=== PATIENT | female | born 1945 | race Caucasian/White ===

== ENCOUNTER → 2016-10-14 | Outpatient (CLI) | payer MEDICARE ==
--- NOTE | 2016-10-14 10:38 | CT ---
EXAMINATION TYPE: CT chest w con DATE OF EXAM: 10/14/2016 10:22 AM COMPARISON: NONE HISTORY: Patient complains of chronic productive cough. CT DLP: 548 mGycm, Automated exposure control for dose reduction was used. CONTRAST: Performed injected with 100 mL of Omnipaque 300. TECHNIQUE: Axial images were obtained at 5 mm thick sections. Reconstructed images are reviewed on t computer in the coronal plane. FINDINGS: Portion of the thyroid visualized is normal. No suspicious lung nodules or focal infiltrates are present. There is some mild pneumonitis change wi thin the lingula. Some compressive atelectasis may be within the dependent portions of the lung bases bilaterally. Small area of pneumonitis is in the periphery of the left lung base. Series 4 image 36. There is a 1.2 cm lymph node in the pretracheal space. The ascending aorta diameter at the level of the main pulmonary artery is 3.3 cm. The main pulmonary artery diameter at the bifurcation is 2.[address] sections are obtained through the upper abdomen. There is mild fatty infiltration within t he visualized portions of the liver. Cortical renal cyst is on the posterior superior left kidney wit h a 1.0 cm transverse dimension. IMPRESSIONS: 1. Mild areas of pneumonitis bilateral lung bases which are nonspecific.
== END | disposition home or self-care (01) ==
LOC: RADCTMAIN 09:36
PROVIDERS: ATTEND Internal Medicine
DX: J18.9 Pneumonia, unspecified organism (principal)
CPT/HCPCS: 71260; Q9967

== ENCOUNTER → 2016-11-06 | Outpatient (CLI) | payer MEDICARE ==
--- NOTE | 2016-11-06 14:19 | MM ---
Reason for exam: screening (asymptomatic). Last mammogram was performed 1 year and 10 months ago. History: Patient is postmenopausal. Took estrogen for 17 years. Took progesterone for 17 years. Physical Findings: A clinical breast exam by your physician is recommended on an annual basis and results should be correlated with mammographic findings. MG Screening Mammo w CAD Bilateral CC and MLO view(s) were taken. Prior study comparison: December 31, 2014, right breast MG work up mamm w CAD RT. December 24, 2014, bilateral MG screening mammo w CAD. There are scattered fibroglandular densities. There is no discrete abnormality. ASSESSMENT: Negative, BI-RAD 1 RECOMMENDATION: Routine screening mammogram of both breasts in 1 year.
== END | disposition home or self-care (01) ==
LOC: RADMAMWWP 11-05 07:57
PROVIDERS: ATTEND Internal Medicine
DX: Z12.31 Encounter for screening mammogram for malignant neoplasm of breast (principal)

== ENCOUNTER 2017-10-13 15:24 | Observation (INO) | payer MEDICARE ==
[2017-10-13 16:10] LABS: Basophils % (A) 1 %; Eosinophils # (A) 0.2 k/uL (0-0.7); Eosinophils % (A) 3 %; HCT 39.6 % (34.0-46.0); HGB 13.5 gm/dL (11.4-16.0); Lymphocytes # (A) 2.5 k/uL (1.0-4.8); Lymphocytes % (A) 38 %; MCH 29.9 pg (25.0-35.0); MCHC 34.1 g/dL (31.0-37.0); MCV 87.7 fL (80.0-100.0); Mean Platelet Volume 7.3; Monocytes # (A) 0.4 k/uL (0-1.0); Monocytes % (A) 6 %; Neutrophils # (A) 3.2 k/uL (1.3-7.7); Neutrophils % (A) 50 %; Platelet Count 234 k/uL (150-450); RBC 4.52 m/uL (3.80-5.40); RDW 12.8 % (11.5-15.5); WBC 6.5 k/uL (3.8-10.6)
--- NOTE | 2017-10-13 16:11 | ED ---
Chest Pain HPI - General Chief Complaint: Chest Pain Stated Complaint: chest pain Time Seen by Provider: 10/13/17 15:36 Source: patient Mode of arrival: wheelchair Limitations: no limitations - History of Present Illness Initial Comments: Patient complains of chest pain. Pain is in the middle of the chest. The pain does not radiate anywhere. Nothing makes it better or worse. Patient took aspirin just prior to arrival. She has no nausea, vomiting, diaphoresis. She has no palpitations. She has no pain or swelling in the arms or legs. She has no neck pain or stiffness. She has no change in vision or hearing. She has no headache. - Related Data Home Medications Medication Instructions Recorded Confirmed Acetaminophen [Tylenol] 1,000 mg PO Q4-6H PRN 10/13/17 10/13/17 Aspirin [Children's Aspirin] 81 mg PO DAILY 10/13/17 10/13/17 Atorvastatin [Lipitor] 40 mg PO DAILY 10/13/17 10/13/17 Calcium Carbonate/Vitamin D3 1 tab PO DAILY 10/13/17 10/13/17 [Calcium 600-Vit D3 400 Tablet] Cyanocobalamin [Vitamin B-12] 500 mcg PO DAILY 10/13/17 10/13/17 Fenofibric Acid (Choline) 135 mg PO DAILY 10/13/17 10/13/17 [Fenofibric Acid] Folic Acid 1.6 mg PO DAILY 10/13/17 10/13/17 Levothyroxine Sodium [Synthroid] 25 mcg PO DAILY 10/13/17 10/13/17 Multivit-Min/Iron/Folic/Lutein 1 tab PO DAILY 10/13/17 10/13/17 [Centrum Silver Women Tablet] Valsartan/Hydrochlorothiazide 1 tab PO DAILY 10/13/17 10/13/17 [Valsartan-Hctz 160-12.5 mg Tab] Allergies Allergy/AdvReac Type Severity Reaction Status Date / Time No Known Allergies Allergy Verified 10/13/17 15:50 Review of Systems ROS Statement: Those systems with pertinent positive or pertinent negative responses have been documented in the HPI. ROS Other: All systems not noted in ROS Statement are negative. EKG Findings - EKG Comments: EKG Findings:: Twelve-lead EKG shows ventricular rate 64 bpm, normal DE interval and QRS complexes, no ST elevation or depression, interpreted by me as normal sinus rhythm. Past Medical History Past Medical History: Hyperlipidemia, Hypertension, Thyroid Disorder History of Any Multi-Drug Resistant Organisms: None Reported Past Surgical History: Appendectomy, Section, Cholecystectomy Past Psychological History: No Psychological Hx Reported Smoking Status: Never smoker Past Alcohol Use History: None Reported Past Drug Use History: None Reported General Exam Limitations: no limitations General appearance: alert, in no apparent distress Head exam: Present: atraumatic, normocephalic, normal inspection Eye exam: Present: normal appearance, PERRL, EOMI. Absent: scleral icterus, conjunctival injection, periorbital swelling ENT exam: Present: normal exam, mucous membranes moist Neck exam: Present: normal inspection. Absent: tenderness, meningismus, lymphadenopathy Respiratory exam: Present: normal lung sounds bilaterally. Absent: respiratory distress, wheezes, rales, rhonchi, stridor Cardiovascular Exam: Present: regular rate, normal rhythm, normal heart sounds. Absent: systolic murmur, diastolic murmur, rubs, gallop, clicks GI/Abdominal exam: Present: soft, normal bowel sounds. Absent: distended, tenderness, guarding, rebound, rigid Extremities exam: Present: normal inspection, full ROM, normal capillary refill. Absent: tenderness, pedal edema, joint swelling, calf tenderness Back exam: Present: normal inspection Neurological exam: Present: alert, oriented X3, CN II-XII intact Psychiatric exam: Present: normal affect, normal mood Skin exam: Present: warm, dry, intact, normal color. Absent: rash Course Vital Signs 10/13/17 10/13/17 15:29 16:03 Temperature 97.0 F L Pulse Rate 74 54 L Respiratory 20 16 Rate Blood Pressure 109/91 140/62 O2 Sat by Pulse 97 98 Oximetry Chest Pain [facility] Patient complains of chest pain. Laboratory workup so far is negative. She will be admitted for observation. Disposition Clinical Impression: Chest pain Disposition: ADMITTED IP TO THIS HOSP Condition: Fair Referrals: Fransisca Perera MD [Primary Care Provider] - 1-2 days Time of Disposition: 16:56
--- NOTE | 2017-10-13 16:11 | XR ---
EXAMINATION TYPE: XR chest 2V DATE OF EXAM: 10/13/2017 COMPARISON: Chest CT October 14, 2016 HISTORY: Chest pain. TECHNIQUE: Frontal and lateral views of the chest are obtained. FINDINGS: There is background chronic emphysematous change with left basilar fibrosis and/or scarring . There is no new suspicious focal air space opacity, pleural effusion, or pneumothorax seen. The ca rdiac silhouette size is within normal limits. The osseous structures are intact. Cholecystectomy c lips are noted. IMPRESSION: Chronic changes without acute pulmonary process.
[2017-10-13 16:22] LABS: Partial Thromboplastin Time 24.3 sec (22.0-30.0)
[2017-10-13 16:24] LABS: ALT 55 U/L (9-52); AST 55 U/L (14-36); Albumin 4.4 g/dL (3.5-5.0); Alkaline Phosphatase 71 U/L (38-126); Anion Gap 13 mmol/L; Blood Urea Nitrogen 15 mg/dL (7-17); Calcium 10.1 mg/dL (8.4-10.2); Carbon Dioxide 26 mmol/L (22-30); Chloride 100 mmol/L (98-107); Glucose 165 mg/dL (74-99); Lipase 190 U/L (23-300); Magnesium 1.4 mg/dL (1.6-2.3); Sodium 139 mmol/L (137-145); Total Bilirubin 0.6 mg/dL (0.2-1.3); Total Protein 7.1 g/dL (6.3-8.2)
[2017-10-13 16:31] LABS: Potassium 4.1 mmol/L (3.5-5.1)
[2017-10-13 16:32] LABS: INR 1.1 (<1.2); Prothrombin Time 10.8 sec (9.0-12.0)
[2017-10-13] MEDS ORDERED: NALOXONE 0.4 MG/ML 1 ML VIAL IV PRN (16:56)
[2017-10-13] MEDS ORDERED: ONDANSETRON 4 MG/2 ML VIAL IVP PRN (16:56)
[2017-10-13] MEDS ORDERED: HEPARIN SODIUM,PORCINE 5,000 UNIT/ML 1 ML VIAL SQ STA (17:05)
[2017-10-13] MEDS ORDERED: NITROGLYCERIN OINT 1 INCH/GM PACKET TOPICAL STA (17:05)
[2017-10-13 18:22] VITALS: RESP 18
[2017-10-13] MEDS: FAMOTIDINE 20 MG TAB PO SCH (20:01)
[2017-10-14] MEDS ORDERED: LEVOTHYROXINE 25 MCG TAB PO SCH (06:30)
[2017-10-14] MEDS: FAMOTIDINE 20 MG TAB PO SCH (08:55)
[2017-10-14] MEDS ORDERED: ACETAMINOPHEN TAB 500 MG TAB PO PRN (08:56)
[2017-10-14] MEDS ORDERED: ASPIRIN 81 MG PO SCH (09:00)
[2017-10-14] MEDS ORDERED: VALSARTAN 160 MG TAB PO SCH (09:00)
[2017-10-14] MEDS ORDERED: ATORVASTATIN 40 MG TAB PO SCH (09:00)
[2017-10-14] MEDS ORDERED: HYDROCHLOROTHIAZIDE 12.5 MG CAP PO SCH (09:00)
[2017-10-14] MEDS ORDERED: Magnesium Replacement Protocol 1 EACH MISC MISCELLANE PRN (09:06)
--- NOTE | 2017-10-14 09:08 | P.CRDCN ---
History of Present Illness Consult date: 10/14/17 History of present illness: Mrs. Armando is a pleasant 72-year-old female with past medical history significant for dyslipidemia, hypertension and hypothyroidism. She denies history of coronary artery disease and has never seen a director of sales and marketing for any reason. We have been asked to see her in consultation for complaints of chest pain. 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 She was assisting with this without an issue. After arriving home for the evening she began to feel a discomfort in her back and chest. She states it was worse with movement and felt sore. She felt as though she couldn't take a deep breath without feeling pain in her back. At the time of my exam she is chest pain free. She denies associated symptoms such as shortness of breath, dizziness , palpitations, diaphoresis, nausea or vomiting. EKG on arrival reveals sinus mechanism with no acute ST or T-wave abnormalities. Chest xray is negative for an acute cardiopulmonary process. Laboratory data reviewed, hemoglobin 13.5, platelets 234, potassium 4.1, magnesium 1.4, creatinine 0.87, cardiac enzymes negative 3, chloride enzymes mildly elevated. Current cardiac medications include atorvastatin 40 mg daily, fenofibrate 135 mg daily, valsartan/HCTZ 160/12.5 daily, aspirin 81 mg daily. Review of Systems CONSTITUTIONAL: Denies fever. Denies chills. EYES: Denies blurred vision. Denies vision changes. Denies eye pain. EARS, NOSE, MOUTH & THROAT: Denies headache. Denies sore throat. Denies ear pain. CARDIOVASCULAR: Denies chest pain. Denies shortness of breath. Denies orthopnea. Denies PND. Denies palpitations. RESPIRATORY: Denies cough. GASTROINTESTINAL: Denies abdominal pain. Denies diarrhea. Denies constipation. Denies nausea. Denies vomiting. MUSCULOSKELETAL: Denies myalgias. INTEGUMENTARY: Denies pruitis. Denies rash. NEUROLOGIC: Denies numbness. Denies tingling. Denies weakness. PSYCHIATRIC: Denies anxiety. Denies depression. ENDOCRINE: Denies fatigue. Denies weight change. Denies polydipsia. Denies polyurina. GENITOURINARY: Denies burning, hematuria or urgency with micturation. HEMATOLOGIC: Denies history of anemia. Denies bleeding. Past Medical History Past Medical History: Hyperlipidemia, Hypertension, Osteoarthritis (OA), Thyroid Disorder History of Any Multi-Drug Resistant Organisms: None Reported Past Surgical History: Appendectomy, Section, Cholecystectomy Additional Past Surgical History / Comment(s): C-SECTIONS X3, COLONOSCPY, CATARACTS -PRATIK LENS IMPLANTS Past Anesthesia/Blood Transfusion Reactions: No Reported Reaction Smoking Status: Never smoker - Past Family History Mother Family Medical History: CVA/TIA, Hypertension Father Family Medical History: Cancer, COPD Additional Family Medical History / Comment(s): EMPHYSEMA, LUNG CANCER, SMOKER Medications and Allergies Home Medications Medication Instructions Recorded Confirmed Type Acetaminophen [Tylenol] 1,000 mg PO Q4-6H PRN 10/13/17 10/13/17 History Aspirin [Children's Aspirin] 81 mg PO DAILY 10/13/17 10/13/17 History Atorvastatin [Lipitor] 40 mg PO DAILY 10/13/17 10/13/17 History Calcium Carbonate/Vitamin D3 1 tab PO DAILY 10/13/17 10/13/17 History [Calcium 600-Vit D3 400 Tablet] Cyanocobalamin [Vitamin B-12] 500 mcg PO DAILY 10/13/17 10/13/17 History Fenofibric Acid (Choline) 135 mg PO DAILY 10/13/17 10/13/17 History [Fenofibric Acid] Folic Acid 1.6 mg PO DAILY 10/13/17 10/13/17 History Levothyroxine Sodium [Synthroid] 25 mcg PO DAILY 10/13/17 10/13/17 History Multivit-Min/Iron/Folic/Lutein 1 tab PO DAILY 10/13/17 10/13/17 History [Centrum Silver Women Tablet] Valsartan/Hydrochlorothiazide 1 tab PO DAILY 10/13/17 10/13/17 History [Valsartan-Hctz 160-12.5 mg Tab] Allergies Allergy/AdvReac Type Severity Reaction Status Date / Time No Known Allergies Allergy Verified 10/13/17 15:50 Physical Exam Vitals: Vital Signs Temp Pulse Pulse Resp BP BP Pulse Ox 10/14/17 08:00 97.5 F L 61 18 128/66 95 10/14/17 04:00 98.2 F 55 L 18 131/54 97 10/14/17 00:00 18 10/13/17 22:36 84 18 130/80 96 10/13/17 20:00 18 10/13/17 19:24 97.9 F 61 18 139/74 94 L 10/13/17 18:25 63 18 10/13/17 18:15 97.7 F 63 18 126/63 98 10/13/17 17:25 98.2 F 57 L 16 146/65 97 10/13/17 16:03 54 L 16 140/62 98 10/13/17 15:29 97.0 F L 74 20 109/91 97 Intake and Output 10/13/17 10/14/17 10/14/17 22:59 06:59 14:59 Intake Total 240 Balance 240 Intake: Oral 240 Other: Voiding Method Toilet Toilet # Voids 1 Weight 81 kg Blood pressure 128/66 heart rate 61 afebrile GENERAL: This is a 72-year-old female in no apparent distress at the time of my examination. HEENT: Head is atraumatic, normocephalic. Pupils are equal, round. Sclerae anicteric. Conjunctivae are clear. Mucous membranes of the mouth are moist. Neck is supple. There is no jugular venous distention. No carotid bruit is heard. LUNGS: Clear to auscultation no wheezes, rales or rhonchi. No chest wall tenderness is noted on palpation or with deep breathing. HEART: Regular rate and rhythm without murmurs, rubs or gallops. S1 and S2 heard. ABDOMEN: Soft, nontender. Bowel sounds are heard. No organomegaly noted. EXTREMITIES: 2+ peripheral pulses with no evidence of peripheral edema and no calf tenderness noted. NEUROLOGIC: Patient is awake, alert and oriented x3. Results 10/13/17 15:58 10/13/17 15:58 Cardiac Enzymes 10/13/17 10/13/17 10/13/17 Range/Units 15:58 15:58 22:35 AST 55 H (14-36) U/L Troponin I <0.012 <0.012 (0.000-0.034) ng/mL 10/14/17 Range/Units 03:29 AST (14-36) U/L Troponin I <0.012 (0.000-0.034) ng/mL Coagulation 10/13/17 Range/Units 15:58 PT 10.8 (9.0-12.0) sec APTT 24.3 (22.0-30.0) sec CBC 10/13/17 Range/Units 15:58 WBC 6.5 (3.8-10.6) k/uL RBC 4.52 (3.80-5.40) m/uL Hgb 13.5 (11.4-16.0) gm/dL Hct 39.6 (34.0-46.0) % Plt Count 234 (150-450) k/uL Comprehensive Metabolic Panel 10/13/17 Range/Units 15:58 Sodium 139 (137-145) mmol/L Potassium 4.1 (3.5-5.1) mmol/L Chloride 100 (98-107) mmol/L Carbon Dioxide 26 (22-30) mmol/L BUN 15 (7-17) mg/dL Creatinine 0.87 (0.52-1.04) mg/dL Glucose 165 H (74-99) mg/dL Calcium 10.1 (8.4-10.2) mg/dL AST 55 H (14-36) U/L ALT 55 H (9-52) U/L Alkaline Phosphatase 71 (38-126) U/L Total Protein 7.1 (6.3-8.2) g/dL Albumin 4.4 (3.5-5.0) g/dL Current Medications Generic Name Dose Route Start Last Admin Trade Name Freq PRN Reason Stop Dose Admin Aspirin 81 mg 10/14/17 09:00 Aspirin PO DAILY [facility] Atorvastatin Calcium 40 mg 10/14/17 09:00 Lipitor PO DAILY [facility] Famotidine 20 mg 10/13/17 21:00 10/13/17 20:01 Pepcid PO 20 mg BID SCOOBY Administration Hydrochlorothiazide 12.5 mg 10/14/17 09:00 Hydrodiuril PO DAILY [facility] Levothyroxine Sodium 25 mcg 10/14/17 06:30 10/14/17 06:17 Synthroid PO 25 mcg 0630 SCOOBY Administration Naloxone HCl 0.2 mg 10/13/17 16:56 Narcan IV Q2M PRN Opioid Reversal Ondansetron HCl 4 mg 10/13/17 16:56 Zofran IVP Q8HR PRN Nausea And Vomiting Valsartan 160 mg 10/14/17 09:00 Diovan PO DAILY SCOOBY Intake and Output 10/13/17 10/14/17 10/14/17 22:59 06:59 14:59 Intake Total 240 Balance 240 Intake: Oral 240 Other: Voiding Method Toilet Toilet # Voids 1 Weight 81 kg 10/13/17 15:58 10/13/17 15:58 Assessment and Plan Assessment: ASSESSMENT 1. Pleuritic chest pain 2. Essential hypertension 3. Dyslipidemia 4. Hypomagnesemia PLAN Obtain 2-D echocardiogram and Doppler study to assess cardiac structure and function. Replace magnesium per protocol. Mrs. Armando's symptoms are pleuritic in nature. This appears to be a muscular skeletal injury secondary to increased exertion and heavy lifting. EKG and cardiac enzymes rule out an acute coronary event. She is stable from a cardiac perspective. She has been advised to follow-up in the office with Dr. Hyde 4- 6 weeks for further outpatient testing. Thank you kindly for this consultation. The above impression and plan of care have been discussed and directed by the signing physician. Dian Mosquera, nurse practitioner, acting as scribe for signing physician.
[2017-10-14] MEDS ORDERED: MAGNESIUM SULFATE-D5W PMX 1 GM in DEXTROSE/WATER 1 100ML.BAG IVPB SCH (10:00)
--- NOTE | 2017-10-14 11:13 | ECHOF ---
Referral Reason:chest pain MEASUREMENTS -------- HEIGHT: 157.5 cm WEIGHT: 80.7 kg BP: 131/54 RVIDd: 2.4 cm (< 3.3) IVSd: 1.0 cm (0.6 - 1.1) LVIDd: 4.4 cm (3.9 - 5.3) LVPWd: 1.2 cm (0.6 - 1.1) IVSs: 1.7 cm LVIDs: 2.6 cm LVPWs: 1.3 cm LAESV Index (A-L): 28.98 ml/m Ao Diam: 2.8 cm (2.0 - 3.7) AV Cusp: 1.5 cm (1.5 - 2.6) LA Diam: 3.1 cm (2.7 - 3.8) EPSS: 0.8 cm MV E Sharan: 1.14 m/s MV DecT: 250 ms MV A Sharan: 1.34 m/s MV E/A Ratio: 0.85 AR PHT: 562 ms RAP: 5.00 mmHg RVSP: 49.65 mmHg MV EF SLOPE: 55.80 mm/s (70 - 150) MV EXCURSION: 1.49 cm (> 18.000) FINDINGS -------- Sinus rhythm. This was a technically adequate study. The left ventricular size is normal. There is borderline concentric left ventricular hypertrophy. Overall left ventricular systolic function is normal with, an EF between 55 - 60 %. The right ventricle is normal in size and function. LA is midly dilated 29-33ml/m2. RA appears enlarged. There is mild aortic valve sclerosis. There is [id number] aortic regurgitation. The aortic pressure half-time by doppler is 562ms. There is no evidence of aortic stenosis. The mitral valve leaflets are mildly thickened. There is trace to mild mitral regurgitation. Trace tricuspid regurgitation present. There is mild to moderate pulmonary hypertension. The righ t ventricular systolic pressure, as measured by Doppler, is 49.65mmHg. The pulmonic valve is normal. The aortic root size is normal. Normal inferior vena cava with normal inspiratory collapse consistent with estimated right atrial pre ssure of 5 mmHg. The pericardium is normal. There is no pericardial effusion. CONCLUSIONS -------- 1. Sinus rhythm. 2. This was a technically adequate study. 3. The left ventricular size is normal. 4. There is borderline concentric left ventricular hypertrophy. 5. Overall left ventricular systolic function is normal with, an EF between 55 - 60 %. 6. LA is midly dilated 29-33ml/m2. 7. RA appears enlarged. 8. There is mild aortic valve sclerosis. 9. There is [id number] aortic regurgitation. 10. The aortic pressure half-time by doppler is 562ms. 11. The mitral valve leaflets are mildly thickened. 12. There is trace to mild mitral regurgitation. 13. Trace tricuspid regurgitation present. 14. There is mild to moderate pulmonary hypertension. 15. The right ventricular systolic pressure, as measured by Doppler, is 49.65mmHg. 16. The aortic root size is normal. 17. There is no pericardial effusion. CASTING SORTER: Wisam Barnes RDCS
[2017-10-14 12:04] VITALS: BP 137/71; PULSE 70; TEMP 98.2
--- NOTE | 2017-10-14 13:39 | P.HPIM ---
History of Present Illness H&P Date: 10/14/17 Chief Complaint: Chest pain HISTORY AND PHYSICAL AND DISCHARGE SUMMARY: This is a 72-year-old female patient of Dr. Theodore with a past medical history of hyperlipidemia, hypertension, hypothyroidism. She states she developed heaviness in her chest that then became pain. She states she's never had this discomfort before. She states that after she was here at the hospital for a few hours she realized that it was related to picking up heavy stuff that she done the day before. She denies having any cough, edema. She denies any cardiac history or workup in the past. Patient was placed in the observation unit and seen in consultation by cardiology and ruled out acute coronary syndrome and cleared her for discharge with planned follow-up with Dr. Roy in 4-6 weeks. Troponins have been negative on 3 draws. Patient will be discharged home today in stable condition. Review of Systems All systems: negative Constitutional: Denies chills, Denies fever Eyes: denies blurred vision, denies pain Ears, nose, mouth and throat: Denies headache, Denies sore throat Cardiovascular: Reports chest pain, Denies shortness of breath Respiratory: Denies cough Gastrointestinal: Denies abdominal pain, Denies diarrhea, Denies nausea, Denies vomiting Genitourinary: Denies dysuria, Denies hematuria Musculoskeletal: Denies myalgias Integumentary: Denies pruritus, Denies rash Neurological: Denies numbness, Denies weakness Psychiatric: Denies anxiety, Denies depression Endocrine: Denies fatigue, Denies weight change Past Medical History Past Medical History: Hyperlipidemia, Hypertension, Osteoarthritis (OA), Thyroid Disorder History of Any Multi-Drug Resistant Organisms: None Reported Past Surgical History: Appendectomy, Section, Cholecystectomy Additional Past Surgical History / Comment(s): C-SECTIONS X3, COLONOSCPY, CATARACTS -PRATIK LENS IMPLANTS Past Anesthesia/Blood Transfusion Reactions: No Reported Reaction Smoking Status: Never smoker Additional Past Alcohol Use History / Comment(s): Patient is a lifelong nonsmoker. She denies any medical marijuana, marijuana, street drug or alcohol use. She lives at home with her . - Past Family History Mother Family Medical History: CVA/TIA, Hypertension Additional Family Medical History / Comment(s): Mother at age 90 from old age. Father Family Medical History: Cancer, COPD Additional Family Medical History / Comment(s): Father at age 80 with history of EMPHYSEMA, LUNG CANCER, SMOKER Brother(s) Additional Family Medical History / Comment(s): Patient has 2 brothers; one has peaks maker, one has no major medical problems. Sister(s) Additional Family Medical History / Comment(s): Patient does not have any sisters. Patient has 2 daughters and 1 son with no major medical problems. Medications and Allergies Home Medications Medication Instructions Recorded Confirmed Type Acetaminophen [Tylenol] 1,000 mg PO Q4-6H PRN 10/13/17 10/13/17 History Aspirin [Children's Aspirin] 81 mg PO DAILY 10/13/17 10/13/17 History Atorvastatin [Lipitor] 40 mg PO DAILY 10/13/17 10/13/17 History Calcium Carbonate/Vitamin D3 1 tab PO DAILY 10/13/17 10/13/17 History [Calcium 600-Vit D3 400 Tablet] Cyanocobalamin [Vitamin B-12] 500 mcg PO DAILY 10/13/17 10/13/17 History Fenofibric Acid (Choline) 135 mg PO DAILY 10/13/17 10/13/17 History [Fenofibric Acid] Folic Acid 1.6 mg PO DAILY 10/13/17 10/13/17 History Levothyroxine Sodium [Synthroid] 25 mcg PO DAILY 10/13/17 10/13/17 History Multivit-Min/Iron/Folic/Lutein 1 tab PO DAILY 10/13/17 10/13/17 History [Centrum Silver Women Tablet] Valsartan/Hydrochlorothiazide 1 tab PO DAILY 10/13/17 10/13/17 History [Valsartan-Hctz 160-12.5 mg Tab] Magnesium Oxide [Mag-Ox] 400 mg PO BID #60 tablet 10/14/17 Rx Allergies Allergy/AdvReac Type Severity Reaction Status Date / Time No Known Allergies Allergy Verified 10/13/17 15:50 Physical Exam Vitals: Vital Signs Temp Pulse Pulse Resp BP BP Pulse Ox 10/14/17 08:00 97.5 F L 61 18 128/66 95 10/14/17 04:00 98.2 F 55 L 18 131/54 97 10/14/17 00:00 18 10/13/17 22:36 84 18 130/80 96 10/13/17 20:00 18 10/13/17 19:24 97.9 F 61 18 139/74 94 L 10/13/17 18:25 63 18 10/13/17 18:15 97.7 F 63 18 126/63 98 10/13/17 17:25 98.2 F 57 L 16 146/65 97 10/13/17 16:03 54 L 16 140/62 98 10/13/17 15:29 97.0 F L 74 20 109/91 97 Intake and Output 10/13/17 10/14/17 10/14/17 22:59 06:59 14:59 Intake Total 240 Balance 240 Intake: Oral 240 Other: Voiding Method Toilet Toilet # Voids 1 Weight 81 kg Gen: This is a 72-year-old female patient. She is sitting up in bed appears to be in no acute distress. HEENT: Head is atraumatic, normocephalic. Pupils equal, round. Sclerae is anicteric. NECK: Supple. No JVD. No lymphadenopathy. No thyromegaly. LUNGS: Clear to auscultation. No wheezes or rhonchi. No intercostal retractions. HEART: Regular rate and rhythm. No murmur. ABDOMEN: Soft. Bowel sounds are present. No masses. No tenderness. EXTREMITIES: No pedal edema. No calf tenderness. NEUROLOGICAL: Patient is awake, alert and oriented x3. Cranial nerves 2 through 12 are grossly intact. Results CBC & Chem 7: 10/13/17 15:58 10/13/17 15:58 Labs: Abnormal Lab Results - Last 24 Hours (Table) 10/13/17 Range/Units 15:58 Glucose 165 H (74-99) mg/dL Magnesium 1.4 L (1.6-2.3) mg/dL AST 55 H (14-36) U/L ALT 55 H (9-52) U/L Thrombosis Risk Factor Assmnt - Choose All That Apply Any of the Below Risk Factors Present?: Yes Each Factor Represents 1 point: Obesity (BMI >25) Other Risk Factors: Yes Each Risk Factor Represents 2 Points: Age 61-74 years Other congenital or acquired thrombophilia - If yes, enter type in comment: No Thrombosis Risk Factor Assessment Total Risk Factor Score: 3 Thrombosis Risk Factor Assessment Level: Moderate Risk Assessment and Plan Plan: 1. Musculoskeletal chest pain. 2. Hypomagnesemia status post replacement. Patient started on magnesium for home. 3. Hypertension. 4. Hyperlipidemia. 5. Generalized osteoarthritis. 6. Hypothyroidism. Patient is on the observation unit. Discharge plan: Return home Discharge Medication List Acetaminophen [Tylenol] 1,000 mg PO Q4-6H PRN 10/13/17 [History] Aspirin [Children's Aspirin] 81 mg PO DAILY 10/13/17 [History] Atorvastatin [Lipitor] 40 mg PO DAILY 10/13/17 [History] Calcium Carbonate/Vitamin D3 [Calcium 600-Vit D3 400 Tablet] 1 tab PO DAILY 07/21 [History] Cyanocobalamin [Vitamin B-12] 500 mcg PO DAILY 10/13/17 [History] Fenofibric Acid (Choline) [Fenofibric Acid] 135 mg PO DAILY 10/13/17 [History] Folic Acid 1.6 mg PO DAILY 10/13/17 [History] Levothyroxine Sodium [Synthroid] 25 mcg PO DAILY 10/13/17 [History] Multivit-Min/Iron/Folic/Lutein [Centrum Silver Women Tablet] 1 tab PO DAILY 07/21 [History] Valsartan/Hydrochlorothiazide [Valsartan-Hctz 160-12.5 mg Tab] 1 tab PO DAILY [History] Magnesium Oxide [Mag-Ox] 400 mg PO BID #60 tablet 10/14/17 [Rx] Impression and plan of care have been directed as dictated by the signing physician. Mary Denise nurse practitioner acting as scribe for signing physician.
== END 2017-10-14 12:13 | disposition home or self-care (01) ==
LOC: EC 15:24 → 3OBS 16:56
PROVIDERS: ADMIT Family Medicine; ATTEND Family Medicine
DX: R07.89 Other chest pain (principal); R07.81 Pleurodynia; E83.42 Hypomagnesemia; I10 Essential (primary) hypertension; E78.5 Hyperlipidemia, unspecified; M15.9 Polyosteoarthritis, unspecified; E03.9 Hypothyroidism, unspecified; Z79.82 Long term (current) use of aspirin; Z79.899 Other long term (current) drug therapy; E66.8 Other obesity; Z68.32 Body mass index [BMI] 32.0-32.9, adult; Z82.49 Family history of ischemic heart disease and other diseases of the circulatory system; Z82.5 Family history of asthma and other chronic lower respiratory diseases; Z80.1 Family history of malignant neoplasm of trachea, bronchus and lung; Z82.3 Family history of stroke
CPT/HCPCS: 99285; 96372 ×2; 36415; 93005; 93306; 83880; 80053; 83690; 83735; 84484 ×2; 85025; 85610; 85730; 71046; G0378 ×2; J1644

== ENCOUNTER → 2018-01-10 | Outpatient (CLI) | payer MEDICARE ==
--- NOTE | 2018-01-12 09:03 | MM ---
Reason for exam: screening (asymptomatic). Last mammogram was performed 1 year and 2 months ago. History: Patient is postmenopausal. Took estrogen for 17 years. Took progesterone for 17 years. Physical Findings: A clinical breast exam by your physician is recommended on an annual basis and results should be correlated with mammographic findings. MG Screening Mammo w CAD Bilateral CC and MLO view(s) were taken. Prior study comparison: November 06, 2016, bilateral MG screening mammo w CAD. December 31, 2014, right breast MG work up mamm w CAD RT. There are scattered fibroglandular densities. No significant changes when compared with prior studies. ASSESSMENT: Negative, BI-RAD 1 RECOMMENDATION: Routine screening mammogram of both breasts in 1 year.
== END | disposition home or self-care (01) ==
LOC: RADMAMWWP 07:51
PROVIDERS: ATTEND Internal Medicine
DX: Z12.31 Encounter for screening mammogram for malignant neoplasm of breast (principal)
CPT/HCPCS: 77067

== ENCOUNTER → 2019-03-27 | Outpatient (CLI) | payer MEDICARE ==
--- NOTE | 2019-03-27 14:30 | MM ---
Reason for exam: screening (asymptomatic). Last mammogram was performed 1 year and 2 months ago. History: Patient is postmenopausal. Took estrogen for 17 years. Took progesterone for 17 years. Physical Findings: A clinical breast exam by your physician is recommended on an annual basis and results should be correlated with mammographic findings. MG Screening Mammo w CAD Bilateral CC and MLO view(s) were taken. Prior study comparison: January 10, 2018, bilateral MG screening mammo w CAD. November 06, 2016, bilateral MG screening mammo w CAD. There are scattered fibroglandular densities. No significant changes when compared with prior studies. ASSESSMENT: Negative, BI-RAD 1 RECOMMENDATION: Routine screening mammogram of both breasts in 1 year.
== END | disposition home or self-care (01) ==
LOC: RADMAMWWP 07:56
PROVIDERS: ATTEND Internal Medicine
DX: Z12.31 Encounter for screening mammogram for malignant neoplasm of breast (principal)
CPT/HCPCS: 77067

== ENCOUNTER → 2020-08-01 | Outpatient (CLI) | payer MEDICARE ==
--- NOTE | 2020-08-02 13:46 | MM ---
Reason for exam: screening (asymptomatic). Last mammogram was performed 1 year and 4 months ago. History: Patient is postmenopausal. Took estrogen for 17 years. Took progesterone for 17 years. Physical Findings: A clinical breast exam by your physician is recommended on an annual basis and results should be correlated with mammographic findings. MG Screening Mammo w CAD Bilateral CC and MLO view(s) were taken. Prior study comparison: March 27, 2019, bilateral MG screening mammo w CAD. January 10, 2018, bilateral MG screening mammo w CAD. The breast tissue is heterogeneously dense. This may lower the sensitivity of mammography. There are benign appearing round vascular calcifications bilaterally. There is no discrete abnormality. ASSESSMENT: Benign, BI-RAD 2 RECOMMENDATION: Routine screening mammogram of both breasts in 1 year.
== END | disposition home or self-care (01) ==
LOC: RADMAMWWP 09:32
PROVIDERS: ATTEND Internal Medicine
DX: Z12.31 Encounter for screening mammogram for malignant neoplasm of breast (principal)
CPT/HCPCS: 77067

== ENCOUNTER → 2020-10-15 | Outpatient (CLI) | payer MEDICARE ==
--- NOTE | 2020-10-15 16:32 | XR ---
EXAMINATION TYPE: XR chest 2V DATE OF EXAM: 10/15/2020 COMPARISON: 10/13/2017 TECHNIQUE: PA and lateral views submitted. HISTORY: Weakness FINDINGS: The lungs are clear and there is no pneumothorax, pleural effusion, or focal pneumonia. Linear bethea ges left lung base most typical of atelectasis. Hypertrophic and degenerative change of the spine. Garcia rgical clips in the abdomen. Atherosclerotic change aorta. IMPRESSION: 1. No acute process.
[2020-10-15 16:41] LABS: Basophils # (A) 0.1 k/uL (0-0.2); Basophils % (A) 0 %; Eosinophils # (A) 0.1 k/uL (0-0.7); Eosinophils % (A) 1 %; HCT 38.2 % (34.0-46.0); HGB 13.2 gm/dL (11.4-16.0); Lymphocytes # (A) 1.5 k/uL (1.0-4.8); Lymphocytes % (A) 8 %; MCH 29.5 pg (25.0-35.0); MCHC 34.6 g/dL (31.0-37.0); MCV 85.2 fL (80.0-100.0); Mean Platelet Volume 7.3; Monocytes # (A) 0.9 k/uL (0-1.0); Monocytes % (A) 4 %; Neutrophils # (A) 16.6 k/uL (1.3-7.7); Neutrophils % (A) 84 %; Platelet Count 519 k/uL (150-450); RBC 4.48 m/uL (3.80-5.40); RDW 13.2 % (11.5-15.5); WBC 19.8 k/uL (3.8-10.6)
[2020-10-15 16:54] LABS: ALT 12 U/L (4-34); AST 23 U/L (14-36); African American GFR (CKD) 23 (>60 ml/min/1.73 sqM); Albumin 3.8 g/dL (3.5-5.0); Alkaline Phosphatase 96 U/L (38-126); Anion Gap 13 mmol/L; Blood Urea Nitrogen 64 mg/dL (7-17); Calcium 9.3 mg/dL (8.4-10.2); Carbon Dioxide 22 mmol/L (22-30); Chloride 96 mmol/L (98-107); Creatine Kinase <20 U/L (30-135); Glucose 120 mg/dL (74-99); LDH 503 U/L (313-618); Non-African American GFR(CKD) 20 (>60 ml/min/1.73 sqM); Potassium 3.8 mmol/L (3.5-5.1); Sodium 131 mmol/L (137-145); Total Bilirubin 0.5 mg/dL (0.2-1.3); Total Protein 7.5 g/dL (6.3-8.2)
[2020-10-15 17:01] LABS: Cholesterol 140 mg/dL (<200); HDL Cholesterol 17 mg/dL (40-60); LDL Cholesterol,Calculated 72 mg/dL (0-99); Triglycerides 253 mg/dL (<150)
[2020-10-15 17:05] LABS: Appearance,Urine Clear (Clear); Bilirubin,Urine Negative (Negative); Blood,Urine Negative (Negative); Color,Urine Light Yellow; Glucose,Urine (UA) Negative (Negative); Ketones,Urine Negative (Negative); Leukocyte Esterase,Urine Negative (Negative); Nitrite,Urine Negative (Negative); Protein,Urine Negative (Negative); Specific Gravity,Urine 1.015 (1.001-1.035); Urobilinogen,Urine <2.0 mg/dL (<2.0)
[2020-10-15 17:08] LABS: T4, Free (Free Thyroxine) 1.65 ng/dL (0.78-2.19)
[2020-10-15 17:26] LABS: C Reactive Protein 130.8 mg/L (<10.0)
[2020-10-16 00:43] LABS: Hemoglobin A1C 7.4 % (4.0-6.0)
== END | disposition home or self-care (01) ==
LOC: RADXRMAIN 15:55
PROVIDERS: ATTEND Internal Medicine
DX: J18.9 Pneumonia, unspecified organism (principal); U07.1 COVID-19; E03.9 Hypothyroidism, unspecified; E78.2 Mixed hyperlipidemia; N39.0 Urinary tract infection, site not specified
CPT/HCPCS: 71046; 80053; 80061; 81003; 82550; 83036; 83615; 84439; 84443; 84484; 85025; 85379; 86140; 87086

== ENCOUNTER 2020-10-16 15:51 | Inpatient (IN) | payer MEDICARE ==
[2020-10-16] MEDS ORDERED: ONDANSETRON 4 MG/2 ML VIAL IVP STA (16:14)
[2020-10-16] MEDS ORDERED: SODIUM CHLORIDE 0.9% 1,000 ML IV STA (16:14)
--- NOTE | 2020-10-16 16:17 | ED ---
General Adult HPI - General Chief complaint: Weakness Stated complaint: PCP sent for dehydration Time Seen by Provider: 10/16/20 16:01 Source: patient Mode of arrival: ambulatory Limitations: no limitations - History of Present Illness Initial comments: Dictation was produced using [employer] dictation software. please excuse any grammatical, word or spelling errors. This patient was cared for during a federal and state declared state of emergency secondary to Covid 19 Chief Complaint: 75-year-old female with past medical history of dyslipidemia hypertension and prostatitis and thyroid disease presents with instruction from primary care physician come to the emergency room for IV fluids History of Present Illness: 75-year-old female she presents today at the emergency department after being told by her primary care to come to the ER for intravenous fluids. Patient has been suffering from poor appetite, weakness for the last couple weeks. She has no pain complaints. She was tested for Covid twice with both times with negative results. States that she did have several days of shortness of breath, fevers and diarrhea. Those symptoms have resolved. She visited her primary care physician yesterday and had more testing p erformed. She called her PCP today and she was instructed to come to the ER for IV fluids. She denies of nausea no vomiting. Denies any constitutional symptoms. The ROS documented in this emergency department record has been reviewed and confirmed by me. Those systems with pertinent positive or negative responses have been documented in the HPI. All other systems are other negative and/or n oncontributory. PHYSICAL EXAM: General Impression: Alert and oriented x3, not in acute distress HEENT: Normocephalic atraumatic, extra-ocular movements intact, pupils equal and reactive to light bilaterally, dry mucous membranes Cardiovascular: Heart regular rate and rhythm Chest: Able to complete full sentences, no retractions, no tachypnea Abdomen: abdomen soft, non-tender, non-distended, no organomegaly Musculoskeletal: Pulses present and equal in all extremities, no peripheral edema Motor: no focal deficits noted Neurological: CN II-XII grossly intact, no focal motor or sensory deficits noted Skin: Intact with no visualized rashes Psych: Normal affect and mood ED course: 75-year-old female presents with poor appetite, nausea and instruction from PCP to come to the ER for intravenous fluids. Vital signs upon arrival are within acceptable limits. Physical examination is benign. Laboratory evaluation obtained. Leukocytosis of 17.7. There is managed for cough 16.6. Coag panel is negative. Metabolic panel shows creatinine 1.92, sodium 132. Glucose 189. Rest of labs unremarkable. Chest and abdominal x-ray shows no acute processes. Case was discussed with Dr. Perera who is patient's primary care physician. He request the patient be admitted to the hospital and patient given Unasyn for concerns of possible bacterial infection. Patient will be admitted for IV fluids and SIRS. EKG interpretation: Ventricular rate 70, sinus rhythm with sinus arrhythmia, LA interval 118, QRS 90, QTC 494. No LA prolongation, no QTC prolongation, no ST or T-wave changes noted. EKG compared to 10/14/2017 showing no changes. Overall, this EKG is unremarkable - Related Data Home Medications Medication Instructions Recorded Confirmed Acetaminophen [Tylenol] 1,000 mg PO Q4-6H PRN 10/13/17 10/16/20 Aspirin [Children's Aspirin] 81 mg PO DAILY 10/13/17 10/16/20 Calcium Carbonate/Vitamin D3 1 tab PO DAILY 10/13/17 10/16/20 [Calcium 600-Vit D3 400 Tablet] Cyanocobalamin [Vitamin B-12] 500 mcg PO DAILY 10/13/17 10/16/20 Folic Acid 1.6 mg PO DAILY 10/13/17 10/16/20 Levothyroxine Sodium [Synthroid] 25 mcg PO DAILY 10/13/17 10/16/20 Multivit-Min/Iron/Folic/Lutein 1 tab PO DAILY 10/13/17 10/16/20 [Centrum Silver Women Tablet] Albuterol Sulfate [Ventolin HFA] 1 - 2 puff INHALATION RT-Q4H PRN 10/16/20 10/16/20 Dexamethasone 6 mg PO DAILY 10/16/20 10/16/20 Levofloxacin [Levaquin] 250 mg PO DAILY 10/16/20 10/16/20 Losartan/Hydrochlorothiazide 1 tab PO DAILY 10/16/20 10/16/20 [Losartan-Hctz 50-12.5 mg Tab] Allergies Allergy/AdvReac Type Severity Reaction Status Date / Time No Known Allergies Allergy Verified 10/16/20 16:36 Review of Systems ROS Statement: Those systems with pertinent positive or pertinent negative responses have been documented in the HPI. ROS Other: All systems not noted in ROS Statement are negative. Past Medical History Past Medical History: Hyperlipidemia, Hypertension, Osteoarthritis (OA), Thyroid Disorder History of Any Multi-Drug Resistant Organisms: None Reported Past Surgical History: Appendectomy, Section, Cholecystectomy Additional Past Surgical History / Comment(s): C-SECTIONS X3, COLONOSCOPY, CATARACTS -PRATIK LENS IMPLANTS Past Anesthesia/Blood Transfusion Reactions: No Reported Reaction Past Psychological History: No Psychological Hx Reported Smoking Status: Never smoker Past Alcohol Use History: None Reported Past Drug Use History: None Reported - Past Family History Mother Family Medical History: CVA/TIA, Hypertension Additional Family Medical History / Comment(s): Mother at age 90 from old age. Father Family Medical History: Cancer, COPD Additional Family Medical History / Comment(s): Father at age 80 with history of EMPHYSEMA, LUNG CANCER, SMOKER Brother(s) Additional Family Medical History / Comment(s): Patient has 2 brothers; one has peaks maker, one has no major medical problems. Sister(s) Additional Family Medical History / Comment(s): Patient does not have any sisters. Patient has 2 daughters and 1 son with no major medical problems. General Exam Limitations: no limitations Course Vital Signs 10/16/20 15:56 Temperature 98.9 F Pulse Rate 70 Respiratory 18 Rate Blood Pressure 138/65 O2 Sat by Pulse 98 Oximetry Medical Decision Making - Lab Data Result diagrams: 10/16/20 16:26 10/16/20 16:26 Lab Results 10/16/20 10/16/20 10/16/20 Range/Units 16:26 16:26 16:26 WBC 17.7 H (3.8-10.6) k/uL RBC 4.32 (3.80-5.40) m/uL Hgb 12.5 (11.4-16.0) gm/dL Hct 36.6 (34.0-46.0) % MCV 84.5 (80.0-100.0) fL MCH 29.0 (25.0-35.0) pg MCHC 34.3 (31.0-37.0) g/dL RDW 13.5 (11.5-15.5) % Plt Count 512 H (150-450) k/uL MPV 7.4 Neutrophils % 94 % Lymphocytes % 4 % Monocytes % 2 % Eosinophils % 0 % Basophils % 0 % Neutrophils # 16.6 H (1.3-7.7) k/uL Lymphocytes # 0.7 L (1.0-4.8) k/uL Monocytes # 0.3 (0-1.0) k/uL Eosinophils # 0.1 (0-0.7) k/uL Basophils # 0.0 (0-0.2) k/uL PT 11.9 (9.0-12.0) sec INR 1.1 (<1.2) APTT 26.3 (22.0-30.0) sec Sodium 132 L (137-145) mmol/L Potassium 4.1 (3.5-5.1) mmol/L Chloride 97 L (98-107) mmol/L Carbon Dioxide 21 L (22-30) mmol/L Anion Gap 14 mmol/L BUN 66 H (7-17) mg/dL Creatinine 1.92 H (0.52-1.04) mg/dL Est GFR (CKD-EPI)AfAm 29 (>60 ml/min/1.73 sqM) Est GFR (CKD-EPI)NonAf 25 (>60 ml/min/1.73 sqM) Glucose 189 H (74-99) mg/dL Calcium 9.3 (8.4-10.2) mg/dL Magnesium 2.7 H (1.6-2.3) mg/dL Total Bilirubin 0.5 (0.2-1.3) mg/dL AST 20 (14-36) U/L ALT 12 (4-34) U/L Alkaline Phosphatase 85 (38-126) U/L Total Protein 7.5 (6.3-8.2) g/dL Albumin 3.8 (3.5-5.0) g/dL TSH 1.110 (0.465-4.680) mIU/L Disposition Clinical Impression: SIRS (systemic inflammatory response syndrome), OSCAR (acute kidney injury) Disposition: ADMITTED IP TO THIS [facility] Condition: Fair Referrals: Fransisca Perera MD [Primary Care Provider] - 1-2 days Decision Time: 18:32
[2020-10-16 16:40] LABS: Basophils % (A) 0 %; Eosinophils # (A) 0.1 k/uL (0-0.7); Eosinophils % (A) 0 %; HCT 36.6 % (34.0-46.0); HGB 12.5 gm/dL (11.4-16.0); Lymphocytes # (A) 0.7 k/uL (1.0-4.8); Lymphocytes % (A) 4 %; MCHC 34.3 g/dL (31.0-37.0); MCV 84.5 fL (80.0-100.0); Mean Platelet Volume 7.4; Monocytes # (A) 0.3 k/uL (0-1.0); Monocytes % (A) 2 %; Neutrophils # (A) 16.6 k/uL (1.3-7.7); Neutrophils % (A) 94 %; Platelet Count 512 k/uL (150-450); RBC 4.32 m/uL (3.80-5.40); RDW 13.5 % (11.5-15.5); WBC 17.7 k/uL (3.8-10.6)
[2020-10-16 16:44] LABS: INR 1.1 (<1.2); Partial Thromboplastin Time 26.3 sec (22.0-30.0); Prothrombin Time 11.9 sec (9.0-12.0)
[2020-10-16 16:57] LABS: Albumin 3.8 g/dL (3.5-5.0); Calcium 9.3 mg/dL (8.4-10.2); Magnesium 2.7 mg/dL (1.6-2.3); Potassium 4.1 mmol/L (3.5-5.1); Total Bilirubin 0.5 mg/dL (0.2-1.3); Total Protein 7.5 g/dL (6.3-8.2)
[2020-10-16] MEDS ORDERED: AMPICILLIN-SULBACTAM 3 GM in SODIUM CHLORIDE 0.9% 100 ML IVPB STA (17:05)
--- NOTE | 2020-10-16 17:52 | XR ---
EXAMINATION TYPE: XR abdomen acute w cxr DATE OF EXAM: 10/16/2020 COMPARISON: NONE HISTORY: Cough and diarrhea. TECHNIQUE: Supine, upright, and left side down lateral decubitus views of the abdomen are obtained. FINDINGS: There is no evidence for pneumoperitoneum. The bowel gas pattern is unremarkable as there is air throughout nondilated small and large bowel. No sizeable air fluid levels. No mass effects are seen. No unusual calcifications. Cholecystectomy clips seen. The lungs are clear. No pneumothorax or pleural effusion. Normal cardiomediastinal silhouette. IMPRESSION: No acute abnormality.
[2020-10-16] MEDS ORDERED: ACETAMINOPHEN TAB 325 MG TAB PO PRN (18:29)
[2020-10-16] MEDS ORDERED: NALOXONE 0.4 MG/ML 1 ML VIAL IV PRN (18:29)
[2020-10-16] MEDS ORDERED: ONDANSETRON 4 MG/2 ML VIAL IVP PRN (18:29)
[2020-10-16] MEDS: SODIUM CHLORIDE 0.9% 1,000 ML IV SCH (20:00)
[2020-10-16 20:14] LABS: Appearance,Urine Cloudy (Clear); Bilirubin,Urine Negative (Negative); Blood,Urine Negative (Negative); Color,Urine Light Yellow; Glucose,Urine (UA) Negative (Negative); Hyaline Casts,Urine 6 /lpf (0-2); Ketones,Urine Negative (Negative); Leukocyte Esterase,Urine Negative (Negative); Mucus,Urine Rare /hpf; Nitrite,Urine Negative (Negative); Protein,Urine Negative (Negative); RBC,Urine 1 /hpf (0-5); Specific Gravity,Urine 1.013 (1.001-1.035); Squamous Epithelial Cell,Urine <1 /hpf (0-4); Urobilinogen,Urine <2.0 mg/dL (<2.0); WBC,Urine 3 /hpf (0-5)
[2020-10-16] MEDS ORDERED: ALBUTEROL NEBULIZED 2.5 MG/3 ML INHALATION PRN (22:04)
[2020-10-16] MEDS: HEPARIN SODIUM,PORCINE 5,000 UNIT/ML 1 ML VIAL SQ SCH (23:15)
[2020-10-17] MEDS: SODIUM CHLORIDE 0.9% 1,000 ML IV SCH ×3 (03:31→17:28)
[2020-10-17] MEDS: LEVOTHYROXINE 25 MCG TAB PO SCH (05:52)
[2020-10-17] MEDS ORDERED: IOPAMIDOL CONTRAST (ORAL USE) VIAL PO PRN (06:02)
[2020-10-17 06:34] LABS: Basophils % (A) 0 %; Eosinophils % (A) 0 %; HCT 32.3 % (34.0-46.0); HGB 11.3 gm/dL (11.4-16.0); Lymphocytes # (A) 1.1 k/uL (1.0-4.8); Lymphocytes % (A) 6 %; MCH 29.5 pg (25.0-35.0); MCHC 34.9 g/dL (31.0-37.0); MCV 84.7 fL (80.0-100.0); Mean Platelet Volume 7.1; Monocytes # (A) 0.8 k/uL (0-1.0); Monocytes % (A) 4 %; Neutrophils # (A) 15.9 k/uL (1.3-7.7); Neutrophils % (A) 89 %; Platelet Count 407 k/uL (150-450); RBC 3.81 m/uL (3.80-5.40); RDW 13.3 % (11.5-15.5); WBC 17.9 k/uL (3.8-10.6)
[2020-10-17] MEDS: HEPARIN SODIUM,PORCINE 5,000 UNIT/ML 1 ML VIAL SQ SCH ×3 (08:38→23:10)
[2020-10-17] MEDS: MULTIVITAMINS, THERA 1 EACH TAB PO SCH (08:38)
[2020-10-17] MEDS: ASPIRIN 81 MG PO SCH (08:38)
[2020-10-17] MEDS: CYANOCOBALAMIN 500 MCG TAB PO SCH (08:38)
[2020-10-17] MEDS: CALCIUM CARB-VIT D 500 MG-5 MCG TAB PO SCH (08:39)
[2020-10-17] MEDS ORDERED: NON FORMULARY DRUG (Folic Acid [Folic Acid] 0.8 MG Capsule) PO SCH (09:00)
[2020-10-17] MEDS ORDERED: PANTOPRAZOLE 40 MG/10 ML VIAL IVP SCH (09:00)
--- NOTE | 2020-10-17 10:13 | CT ---
EXAMINATION TYPE: CT abdomen pelvis wo con DATE OF EXAM: 10/17/2020 COMPARISON: None HISTORY: 75-year-old female Generalized pain, weight loss CT DLP: 520.5 mGycm. Automated exposure control for dose reduction was used. TECHNIQUE: Contiguous axial scanning of the abdomen and pelvis without IV contrast. Coronal and sagit kate reconstructions performed. FINDINGS: Heart upper limits of normal in size without pericardial effusion. Strandy atelectasis or scarring in the lower lungs without pleural effusion. Liver enlarged at 20.3 cm suspected to be due to the presence of a Thiago's lobe. Cholecystectomy cli ps. Adrenal glands, spleen, and pancreas show no gross abnormality by noncontrast CT. Kidneys show mild perinephric fat stranding probably due to chronic kidney disease or senescent aguilera e. 1.2 cm exophytic cortical hypodensity at the upper pole of the left kidney and a couple high density cortical foci at the lower pole measuring 1 cm in 5 mm these are too small for accurate CT characteri zation, cysts, possible hemorrhagic cysts are suspected but follow-up is recommended. No dilated small bowel, free fluid, or free air. No mesenteric or retroperitoneal lymphadenopathy. Ti ny fatty umbilical hernia. Redundant with the distal sigmoid. Oral contrast progressed to the rectum. No significant stool burde n. No pericolonic inflammatory change. Bladder partially distended. Uterus anteverted. Ovaries are small. Tiny pelvic phleboliths. No abnorm al fluid collection in the pelvis or pelvic lymphadenopathy. Bones: Mild degenerative change of the hips. Advanced hypertrophic facet arthropathy mid to lower lum bar spine. There seems to be some degenerative interbody ankylosis at L5-S1. Grade 1 anterolisthesis above at L4-L5. IMPRESSION: 1. 3 cortical lesions within the left kidney. The upper pole lesion measures 1.2 cm and two hyperden se lesions in the lower pole measure up to 1 cm. Cysts/hemorrhagic cysts are favored rather than smal l solid masses. Six-month follow-up CT recommended to reassess. 2. Tiny fatty umbilical hernia. Degenerative change in the mid and lower lumbar spine.
[2020-10-17 10:20] LABS: African American GFR (CKD) 43.1 (60.0-200.0); Albumin 3.4 g/dL (3.80-4.90); Albumin/Globulin Ratio 1.48 (1.60-3.17); Anion Gap 9.9 mmol/L (4.00-12.00); BUN/Creat Ratio 42.14 Ratio (12.00-20.00); Calcium 8.7 mg/dL (8.7-10.3); Carbon Dioxide 24.1 mmol/L (21.6-31.8); Globulin 2.3 g/dL (1.6-3.3); Non-African American GFR(CKD) 37.2 (60.0-200.0); Potassium 4.1 mmol/L (3.5-5.5); Total Bilirubin 0.3 mg/dL (0.2-1.2); Total Protein 5.7 g/dL (6.2-8.2)
--- NOTE | 2020-10-17 17:15 | CONS ---
CONSULTATION REASON FOR CONSULT: Renal failure. HISTORY OF PRESENT ILLNESS: The patient is a 75-year-old female who was admitted to the hospital yesterday with complaints of weakness. The patient had diarrhea on and off prior to admission. She denied any previous history of kidney disease. Patient states she has not been eating much for the past week or so and has developed progressive weakness. Urine output has been average per patient, with no significant change. No urinary symptoms. She did admit to use of NSAIDs a couple of doses prior to admission. The patient was maintained on angiotensin receptor blockers and thiazide diuretics at home prior to admission. Serum creatinine was 2.35 on initial admission, currently down to 1.4. Previous creatinine in 2018 was 0.87 mg/dL. Blood pressure has been around 116 currently systolic, but not lower than that. PAST MEDICAL HISTORY: Hypertension, hyperlipidemia, osteoarthritis, hypothyroidism. PAST SURGICAL HISTORY: Appendectomy, , cholecystectomy, colonoscopy, cataract surgery, bilateral lens implants. SOCIAL HISTORY: Negative for smoking, drug abuse or alcohol abuse. MEDICATIONS: Medications prior to admission included Tylenol, aspirin, vitamin D, vitamin B12, Synthroid, Levaquin, losartan, hydrochlorothiazide, Levaquin, dexamethasone. REVIEW OF SYSTEMS: As per HPI. Other systems negative. PHYSICAL EXAMINATION: Patient is comfortable, awake, not in any acute distress. Blood pressure is 147/72, heart rate 61 per minute. She is afebrile. EXAMINATION OF THE HEART: S1 and S2. EXAMINATION OF LUNGS: Bilateral breath sounds are heard. ABDOMEN: Soft, non-tender. Examination of lower extremities shows no significant edema. 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 LABS: Labs show sodium 137, potassium 4.1, chloride 103, BUN 59, creatinine 1.4, hemoglobin 11.3 g/dL. Urine is fairly benign; no evidence of blood, protein or cells. C difficile toxin negative. Patient states that she was tested for coronavirus previously and it was negative. ASSESSMENT: 1. Acute kidney injury, prerenal, associated intravascular volume depletion, currently improved. UA is completely benign. CT scan does not show any evidence of obstruction. 2. Left renal lesions, possibly cysts. Will obtain further imaging down the road with CT with IV contrast or an MRI. 3. Volume depletion, maintained on IV fluids. 4. Possible gastroenteritis, most likely viral. PLAN: Continue with IV fluids. Hold off on the diuretics and angiotensin receptor blockers for now. Repeat labs in a.m. Thank you for this consultation. Will continue to follow the patient with you during her hospitalization. MMODL / IJN: [id number] /
[2020-10-18] MEDS: SODIUM CHLORIDE 0.9% 1,000 ML IV SCH ×3 (06:03→20:03)
[2020-10-18] MEDS: LEVOTHYROXINE 25 MCG TAB PO SCH (06:03)
[2020-10-18] MEDS: CALCIUM CARB-VIT D 500 MG-5 MCG TAB PO SCH (07:28)
[2020-10-18] MEDS: MULTIVITAMINS, THERA 1 EACH TAB PO SCH (07:28)
[2020-10-18] MEDS: CYANOCOBALAMIN 500 MCG TAB PO SCH (07:28)
[2020-10-18] MEDS: PANTOPRAZOLE 40 MG TABLET PO SCH (07:28)
[2020-10-18] MEDS: ASPIRIN 81 MG PO SCH (07:28)
[2020-10-18] MEDS: HEPARIN SODIUM,PORCINE 5,000 UNIT/ML 1 ML VIAL SQ SCH ×2 (07:29→17:13)
--- NOTE | 2020-10-18 14:47 | P.HPIM ---
History of Present Illness H&P Date: 10/17/20 Chief Complaint: Weakness/Acute kidney injury This is a 75 year old female with a previous medical history significant for hypertension and hypertensive cardiovascular disease, hyperlipidemia, as well as short term memory loss, patient was in her usual state of health till around Dang when she developed to have generalized weakness and fever , chills, and abdominal pain at that time she went to [facility] and she was diagnosed with upper respiratory tract infection and she was placed on steroid pack and Z-pack , after she had a swab for COVID-19 which came back negative, did not get better, went back and she was given another swab that came back negative, she has been complaining of generalized weakness with muscle pain and fatigue along with diarrhea, poor appetite and not able to eat or drink, her grand daughter is an BASKETBALL PLAYER and she gave her more treatment without help, she has lost greater than 20 Lbs , she decided then to come to see me, I wanted to send her to the ER but she electe to be treated as outpatient, CXR was done negative , labs were done that showe acute kidney injury, with elevated CRP, she was directed to go to the ER and she was admitted for hydration and , nephrology consult will be obtained, patient will need to have CT scan of the abdomen and Pelvis with oral contrast for further evaluation in few days, rule out any malignancy, also we will check Stool for C.Diff. Review of Systems Constitutional: Reports anorexia, Reports chronic pain, Reports fatigue, Reports lethargy, Reports weakness, Reports weight loss Eyes: denies blurred vision, denies bulging eye, denies decreased vision Ears, nose, mouth and throat: Denies dysphagia, Denies neck lump, Denies sore throat Cardiovascular: Denies chest pain, Denies decreased exercise tolerance, Denies dyspnea on exertion, Denies leg edema, Denies rapid heart beat, Denies shortness of breath, Denies syncope Respiratory: Denies congestion, Denies cough, Denies cough with sputum, Denies home oxygen, Denies sleep apnea, Denies snoring, Denies wheezing Gastrointestinal: Reports abdominal pain, Reports bloating, Reports change in bowel habits, Reports diarrhea, Reports early satiety, Reports loss of appetite, Reports nausea, Denies melena, Denies vomiting Genitourinary: Denies dysuria, Denies nocturia Menstruation: Reports postmenopausal Musculoskeletal: Denies myalgias Musculoskeletal: absent: ankle pain, ankle stiffness, ankle swelling, elbow pain, elbow stiffness, elbow swelling, foot pain, foot stiffness, foot swelling, hand pain, hand stiffness, hand swelling, hip pain, hip stiffness, hip swelling, knee pain, knee stiffness, knee swelling, shoulder pain, shoulder stiffness, shoulder swelling, wrist pain, wrist stiffness, wrist swelling Integumentary: Denies pruritus, Denies rash Neurological: Denies numbness, Denies weakness Psychiatric: Denies anxiety, Denies depression Endocrine: Denies fatigue, Denies weight change Past Medical History Past Medical History: Hyperlipidemia, Hypertension, Osteoarthritis (OA), Thyroid Disorder History of Any Multi-Drug Resistant Organisms: None Reported Past Surgical History: Appendectomy, Section, Cholecystectomy Additional Past Surgical History / Comment(s): C-SECTIONS X3, COLONOSCOPY, CATARACTS -PRATIK LENS IMPLANTS Past Anesthesia/Blood Transfusion Reactions: No Reported Reaction Past Psychological History: No Psychological Hx Reported Additional Psychological History / Comment(s): 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 IN [place] STYLE HOME W/ BASEMENT(12 STEPS). PORCH HAS 3 STEPS. NO MEDICAL EQUIPMENT USED. NO HOME CARE SERVICES RECIEVED. DRIVES. Smoking Status: Never smoker Past Alcohol Use History: None Reported Additional Past Alcohol Use History / Comment(s): Patient is a lifelong nonsmoker. She denies any medical marijuana, marijuana, street drug or alcohol use. She lives at home with her . Past Drug Use History: None Reported - Past Family History Mother Family Medical History: CVA/TIA, Hypertension Additional Family Medical History / Comment(s): Mother at age 90 from old age. Father Family Medical History: Cancer, COPD Additional Family Medical History / Comment(s): Father at age 80 with history of EMPHYSEMA, LUNG CANCER, SMOKER Brother(s) Additional Family Medical History / Comment(s): Patient has 2 brothers; one has peaks maker, one has no major medical problems. Sister(s) Additional Family Medical History / Comment(s): Patient does not have any sisters. Patient has 2 daughters and 1 son with no major medical problems. Medications and Allergies Home Medications Medication Instructions Recorded Confirmed Type Acetaminophen [Tylenol] 1,000 mg PO Q4-6H PRN 10/13/17 10/16/20 History Aspirin [Children's Aspirin] 81 mg PO DAILY 10/13/17 10/16/20 History Calcium Carbonate/Vitamin D3 1 tab PO DAILY 10/13/17 10/16/20 History [Calcium 600-Vit D3 400 Tablet] Cyanocobalamin [Vitamin B-12] 500 mcg PO DAILY 10/13/17 10/16/20 History Folic Acid 1.6 mg PO DAILY 10/13/17 10/16/20 History Levothyroxine Sodium [Synthroid] 25 mcg PO DAILY 10/13/17 10/16/20 History Multivit-Min/Iron/Folic/Lutein 1 tab PO DAILY 10/13/17 10/16/20 History [Centrum Silver Women Tablet] Albuterol Sulfate [Ventolin HFA] 1 - 2 puff INHALATION RT-Q4H PRN 10/16/20 10/16/20 History Dexamethasone 6 mg PO DAILY 10/16/20 10/16/20 History Levofloxacin [Levaquin] 250 mg PO DAILY 10/16/20 10/16/20 History Losartan/Hydrochlorothiazide 1 tab PO DAILY 10/16/20 10/16/20 History [Losartan-Hctz 50-12.5 mg Tab] Allergies Allergy/AdvReac Type Severity Reaction Status Date / Time No Known Allergies Allergy Verified 10/16/20 16:36 Physical Exam Vitals: Vital Signs Temp Pulse Pulse Resp BP BP Pulse Ox 10/17/20 01:52 97.9 F 68 16 137/69 97 10/16/20 20:56 98.2 F 65 17 149/65 98 10/16/20 20:00 19 10/16/20 19:50 67 19 152/76 98 10/16/20 18:00 98.8 F 74 18 132/78 98 10/16/20 15:56 98.9 F 70 18 138/65 98 Intake and Output 10/16/20 10/16/20 10/17/20 14:59 22:59 06:59 Other: Voiding Method Toilet Weight 68.039 kg Physical examination: HEENT: head is atraumatic normocephalic pupils were equal round reactive to light and accommodations extra ocular muscle movements were intact, mucous membranes of the mouth are somewhat dry. Neck: supple no JVP. Chest: decreased breath sounds at the bases otherwise clear to auscultation bilaterally. Heart: first heart sound is deprssed, second heart sound is normal there is SLICK 2/6 located at the left sternal border. Abdomen: soft non specific tenderness , no hepatosplenomegaly positive bowel sounds. Extremities: there is no edema no calf tenderness DP +2 bilaterally. Neurologic examniation: patient is awake alert and oriented X 3 CN II-XII are grossly intact muscle power 4/5 in bilateral upper and lower extremities, deep tendon reflexes are normal. Results CBC & Chem 7: 10/16/20 16:26 10/16/20 16:26 Labs: Abnormal Lab Results - Last 24 Hours (Table) 10/16/20 10/16/20 10/16/20 Range/Units 16:26 16:26 19:55 WBC 17.7 H (3.8-10.6) k/uL Plt Count 512 H (150-450) k/uL Neutrophils # 16.6 H (1.3-7.7) k/uL Lymphocytes # 0.7 L (1.0-4.8) k/uL Sodium 132 L (137-145) mmol/L Chloride 97 L (98-107) mmol/L Carbon Dioxide 21 L (22-30) mmol/L BUN 66 H (7-17) mg/dL Creatinine 1.92 H (0.52-1.04) mg/dL Glucose 189 H (74-99) mg/dL Magnesium 2.7 H (1.6-2.3) mg/dL Urine Appearance Cloudy H (Clear) Hyaline Casts 6 H (0-2) /lpf Urine Mucus Rare H (None) /hpf Thrombosis Risk Factor Assmnt - DVT/VTE Prophylaxis DVT/VTE Prophylaxis: Pharmacologic Prophylaxis ordered, Mechanical Prophylaxis ordered - Choose All That Apply Any of the Below Risk Factors Present?: Yes Each Factor Represents 1 point: Medical pt on bed rest Other Risk Factors: Yes Each Risk Factor Represents 2 Points: Age 61-74 years Thrombosis Risk Factor Assessment Total Risk Factor Score: 3 Thrombosis Risk Factor Assessment Level: Moderate Risk Assessment and Plan Assessment: Assessment and Plan: 1. Acute kidney injury due to acute tubular necrosis and poor oral intake of fluids along with diarrhea. we will discontinue Losarta/Hctz, we will start IVF Normal saline at 125 cc/h , we will check US of the kidneys and we will continue to monitor input and output and daily weight, Nephrology consult. 2. Protracting illness for 3 weeks started with upper respiratory tract and dairrhea with significant weight loss, we will check labs, needs CT scan of the abdomen and Pelvis with oral contrast down the line, we will check C.Diff toxins, continue with Unasyn for now. 3. Leukocytosis. we will check blood cultures and her CXR and UA are negative , we will need CT scan of the abdomen and p4. Hyponatremia due to hypovolemiaelvis with oral contrast only. 4. Hyponatremia due to hypovolemia. we will contijue with IV fluid. 5. Hypertension and hypertensive cardiovascular disease. we will hold off ARB and diuretics. 6. Hypothyroidism. we will continue with synthroid 25 mcg orally daily. 7. Hypelipidemia. she was supposed to be on STATINS but she took her self off. 8. Memory loss. stable. 9. Osteoarthritis. stable. 10. DVT prophylaxis. we will continue with Heparin 5000 units SC Q 8 H. 11. GI prophylaxis. we will continue with Protonix 40 mg orally daily. 12. Admits to inpatient, estimated length of stay 2 midnights. 13. Patient is full code.
--- NOTE | 2020-10-18 16:15 | PN ---
PROGRESS NOTE The patient is seen for followup for acute kidney injury. Patient's renal function has improved significantly with IV hydration. Serum creatinine has decreased from 1.9 to 1.4 yesterday. I do not have labs from today. PHYSICAL EXAMINATION: Patient is comfortable. Blood pressure 126/59, heart rate 54 per minute. She is afebrile. EXAMINATION OF THE HEART: S1, S2. EXAMINATION OF THE LUNGS: Bilateral breath sounds are heard. Abdomen is soft, nontender. Examination of lower extremities shows no evidence of edema. 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 LABS: Not available from today. ASSESSMENT: 1. Acute kidney injury prerenal currently significantly improved. 2. Volume depletion, maintained on IV fluids and improved. 3. Left kidney lesions most likely cysts, possibly complex cysts which will need further evaluation down the road. This can be done as outpatient. 4. Nausea, decreased oral intake and diarrhea with nonspecific CT of the abdomen. Coronavirus negative. 5. Mild hyponatremia which was hypovolemic and improved with normal saline. PLAN: May continue with IV fluids. Check labs in a.m. UA is completely benign. Follow up with MRI or CT with IV contrast down the road for further assessment of the left renal lesions. MMODL / IJN: [id number] /
[2020-10-19] MEDS: HEPARIN SODIUM,PORCINE 5,000 UNIT/ML 1 ML VIAL SQ SCH ×2 (00:13→07:06)
[2020-10-19] MEDS: SODIUM CHLORIDE 0.9% 1,000 ML IV SCH ×2 (03:24→12:19)
[2020-10-19] MEDS: LEVOTHYROXINE 25 MCG TAB PO SCH (06:08)
[2020-10-19] MEDS: ASPIRIN 81 MG PO SCH (07:06)
[2020-10-19] MEDS: MULTIVITAMINS, THERA 1 EACH TAB PO SCH (07:06)
[2020-10-19] MEDS: PANTOPRAZOLE 40 MG TABLET PO SCH (07:06)
[2020-10-19] MEDS: CYANOCOBALAMIN 500 MCG TAB PO SCH (07:06)
[2020-10-19] MEDS: CALCIUM CARB-VIT D 500 MG-5 MCG TAB PO SCH (07:06)
[2020-10-19 08:46] VITALS: BP 163/68; PULSE 72; RESP 18; TEMP 98.1
--- NOTE | 2020-10-19 10:45 | P.PN ---
Subjective Patient is seen in follow-up for acute kidney injury. Oral intake is gradually improving. No vomiting or diarrhea. No edema. Good urine output. Vital signs are stable. General: The patient appeared well nourished and normally developed. HEENT: Head exam is unremarkable. Neck is without jugular venous distension. LUNGS: Breath sounds decreased. HEART: Rate and Rhythm are regular. ABDOMEN: Soft, nontender. EXTREMITITES: No edema. Objective - Vital Signs Vital signs: Vital Signs Temp 98.1 F 10/19/20 08:45 Pulse 72 10/19/20 08:45 Resp 18 10/19/20 08:45 BP 163/68 10/19/20 08:45 Pulse Ox 99 10/19/20 08:45 Intake & Output 10/18/20 10/19/20 10/19/20 18:59 06:59 18:59 Other: Voiding Method Toilet # Voids 3 2 - Labs CBC & Chem 7: 10/17/20 06:07 10/17/20 06:07 Labs: Microbiology - Last 24 Hours (Table) 10/16/20 17:23 Blood Culture - Preliminary Blood No Growth after 48 hours Assessment and Plan Plan: Assessment: 1. Acute kidney injury mostly prerenal improved with IV hydration. Creatinine was 1.92 on admission and is 1.4 today. UA benign. 2. Kidney cysts. Further follow-up imaging outpatient. 3. Benign hypertension. Stable. Plan: Encourage oral intake. Maintain IV fluids. If renal function improving, she can be discharged from nephrology standpoint. Hold off on losartan and hydrochlorothiazide at this time. Add amlodipine 5 mg once daily his blood pressure staying above 140/90.
[2020-10-19 11:34] LABS: African American GFR (CKD) 81 (>60 ml/min/1.73 sqM); Anion Gap 4 mmol/L; Blood Urea Nitrogen 15 mg/dL (7-17); Calcium 8.4 mg/dL (8.4-10.2); Carbon Dioxide 26 mmol/L (22-30); Chloride 107 mmol/L (98-107); Glucose 93 mg/dL (74-99); Magnesium 1.8 mg/dL (1.6-2.3); Non-African American GFR(CKD) 71 (>60 ml/min/1.73 sqM); Potassium 3.6 mmol/L (3.5-5.1); Sodium 137 mmol/L (137-145)
--- NOTE | 2020-10-19 11:48 | P.PN ---
Subjective Progress Note Date: 10/18/20 This is a 75 year old female with a previous medical history significant for hypertension and hypertensive cardiovascular disease, hyperlipidemia, as well as short term memory loss, patient was in her usual state of health till around Dang when she developed to have generalized weakness and fever , chills, and abdominal pain at that time she went to [facility] and she was diagnosed with upper respiratory tract infection and she was placed on steroid pack and Z-pack , after she had a swab for COVID-19 which came back negative, did not get better, went back and she was given another swab that came back negative, she has been complaining of generalized weakness with muscle pain and fatigue along with diarrhea, poor appetite and not able to eat or drink, her grand daughter is an DIRECTOR PAYMENT and she gave her more treatment without help, she has lost greater than 20 Lbs , she decided then to come to see me, I wanted to send her to the ER but she electe to be treated as outpatient, CXR was done negative , labs were done that showe acute kidney injury, with elevated CRP, she was directed to go to the ER and she was admitted for hydration and , nephrology consult will be obtained, patient will need to have CT scan of the abdomen and Pelvis with oral contrast for further evaluation in few days, rule out any malignancy, also we will check Stool for C.Diff. 10/18: Patient is doing a lot better today she denies any chest pain, or shortness breath, she has no abdominal pain, she is tolerating her diet very well, she continues to be on IV fluid, her BUN is still slightly elevated creatinine is coming down, she will be kept in the hospital for another 24 hours as she can go home in the next 24 hours, her C. diff is negative, patient will be discharged home in the next 24 hours and follow-up with me as an outpatient in 1 week. Objective - Vital Signs Vital signs: Vital Signs Temp 98.4 F 10/18/20 13:40 Pulse 68 10/18/20 13:40 Resp 18 10/18/20 13:40 BP 130/62 10/18/20 13:40 Pulse Ox 98 10/18/20 13:40 Intake & Output 10/17/20 10/18/20 10/18/20 18:59 06:59 18:59 Output Total 100 Balance -100 Output: Stool 100 Other: Voiding Method Toilet # Voids 1 1 # Bowel Movements 1 - Exam Review of Systems Constitutional: Reports anorexia, Reports chronic pain, Reports fatigue, Reports lethargy, Reports weakness, Reports weight loss Eyes: denies blurred vision, denies bulging eye, denies decreased vision Ears, nose, mouth and throat: Denies dysphagia, Denies neck lump, Denies sore throat Cardiovascular: Denies chest pain, Denies decreased exercise tolerance, Denies dyspnea on exertion, Denies leg edema, Denies rapid heart beat, Denies shortness of breath, Denies syncope Respiratory: Denies congestion, Denies cough, Denies cough with sputum, Denies home oxygen, Denies sleep apnea, Denies snoring, Denies wheezing Gastrointestinal: Reports abdominal pain, Reports bloating, Reports change in bowel habits, Reports diarrhea, Reports early satiety, Reports loss of appetite, Reports nausea, Denies melena, Denies vomiting Genitourinary: Denies dysuria, Denies nocturia Menstruation: Reports postmenopausal Musculoskeletal: Denies myalgias Musculoskeletal: absent: ankle pain, ankle stiffness, ankle swelling, elbow pain, elbow stiffness, elbow swelling, foot pain, foot stiffness, foot swelling, hand pain, hand stiffness, hand swelling, hip pain, hip stiffness, hip swelling, knee pain, knee stiffness, knee swelling, shoulder pain, shoulder stiffness, shoulder swelling, wrist pain, wrist stiffness, wrist swelling Integumentary: Denies pruritus, Denies rash Neurological: Denies numbness, Denies weakness Psychiatric: Denies anxiety, Denies depression Endocrine: Denies fatigue, Denies weight change Physical examination: HEENT: head is atraumatic normocephalic pupils were equal round reactive to light and accommodations extra ocular muscle movements were intact, mucous membranes of the mouth are somewhat dry. Neck: supple no JVP. Chest: decreased breath sounds at the bases otherwise clear to auscultation bilaterally. Heart: first heart sound is deprssed, second heart sound is normal there is SLICK 2/6 located at the left sternal border. Abdomen: soft non specific tenderness , no hepatosplenomegaly positive bowel sounds. Extremities: there is no edema no calf tenderness DP +2 bilaterally. Neurologic examniation: patient is awake alert and oriented X 3 CN II-XII are grossly intact muscle power 4/5 in bilateral upper and lower extremities, deep tendon reflexes are normal. - Labs CBC & Chem 7: 10/17/20 06:07 10/19/20 10:51 Labs: Microbiology - Last 24 Hours (Table) 10/16/20 17:23 Blood Culture - Preliminary Blood No Growth after 24 hours Assessment and Plan Assessment: Assessment and Plan: 1. Acute kidney injury due to acute tubular necrosis and poor oral intake of fluids along with diarrhea. we will discontinue Losarta/Hctz, we will start IVF Normal saline at 75 cc/h , we will check US of the kidneys and we will continue to monitor input and output and daily weight, Nephrology consult. 2. Protracting illness for 3 weeks started with upper respiratory tract and dairrhea with significant weight loss, we will check labs, needs CT scan of the abdomen and Pelvis with oral contrast down the line, we will check C.Diff toxins, continue with Unasyn for now. 3. Leukocytosis. we will check blood cultures and her CXR and UA are negative , we will need CT scan of the abdomen and p4. Hyponatremia due to hypovolemiaelvis with oral contrast only. 4. Hyponatremia due to hypovolemia. we will contijue with IV fluid. 5. Hypertension and hypertensive cardiovascular disease. we will hold off ARB and diuretics. 6. Hypothyroidism. we will continue with synthroid 25 mcg orally daily. 7. Hypelipidemia. she was supposed to be on STATINS but she took her self off. 8. Memory loss. stable. 9. Osteoarthritis. stable. 10. DVT prophylaxis. we will continue with Heparin 5000 units SC Q 8 H. 11. GI prophylaxis. we will continue with Protonix 40 mg orally daily. 12. Patient is full code. 13. Home tomorrow morning.
--- NOTE | 2020-10-19 11:49 | P.DS ---
Providers Date of admission: 10/16/20 18:29 Expected date of discharge: 10/19/20 Attending physician: Fransisca Perera Consults: 10/17/20 06:00 Consult Physician Routine Consulting Provider: Zonia Jensen Consult Reason/Comments: OSCAR Do you want consulting provider notified?: Yes Primary care physician: Fransisca Perera Hospital Course: This is a 75 year old female with a previous medical history significant for hypertension and hypertensive cardiovascular disease, hyperlipidemia, as well as short term memory loss, patient was in her usual state of health till around Dang when she developed to have generalized weakness and fever , chills, and abdominal pain at that time she [facility] and she was diagnosed with upper respiratory tract infection and she was placed on steroid pack and Z-pack , after she had a swab for COVID-19 which came back negative, did not get better, went back and she was given another swab that came back negative, she has been complaining of generalized weakness with muscle pain and fatigue along with diarrhea, poor appetite and not able to eat or drink, her grand daughter is an SOLUTIONS ANALYST and she gave her more treatment without help, she has lost greater than 20 Lbs , she decided then to come to see me, I wanted to send her to the ER but she electe to be treated as outpatient, CXR was done negative , labs were done that showe acute kidney injury, with elevated CRP, she was directed to go to the ER and she was admitted for hydration and , nephrology consult will be obtained, patient will need to have CT scan of the abdomen and Pelvis with oral contrast for further evaluation in few days, rule out any malignancy, also we will check Stool for C.Diff. 10/18: Patient is doing a lot better, she is maintained on IV fluids in the form of normal saline 75 mL an hour, tolerates her diet very well, C. difficile negative, she will be discharged on the 24 hours. Discharge diagnoses: 1. Acute kidney injury due to acute tubular necrosis and poor oral intake of fluids along with diarrhea. we will discontinue Losarta/Hctz, we will start IVF Normal saline at 125 cc/h , we will check US of the kidneys and we will continue to monitor input and output and daily weight, Nephrology consult. 2. Protracting illness for 3 weeks started with upper respiratory tract and dairrhea with significant weight loss, we will check labs, needs CT scan of the abdomen and Pelvis with oral contrast down the line, we will check C.Diff toxins, continue with Unasyn for now. 3. Leukocytosis. we will check blood cultures and her CXR and UA are negative , we will need CT scan of the abdomen and p4. Hyponatremia due to hypovolemiaelvis with oral contrast only. 4. Hyponatremia due to hypovolemia. 5. Hypertension and hypertensive cardiovascular disease. 6. Hypothyroidism. 7. Hypelipidemia 8. Memory loss. stable. 9. Osteoarthritis, generalized. stable. Patient Condition at Discharge: Fair Plan - Discharge Summary Discharge Rx Participant: Yes New Discharge Prescriptions: No Action Cyanocobalamin [Vitamin B-12] 500 mcg PO DAILY Calcium Carbonate/Vitamin D3 [Calcium 600-Vit D3 10 mcg (400 Iu)] 1 tab PO DAILY Folic Acid 1.6 mg PO DAILY Aspirin [Children's Aspirin] 81 mg PO DAILY Acetaminophen [Tylenol] 1,000 mg PO Q4-6H PRN PRN Reason: Pain Levothyroxine Sodium [Synthroid] 25 mcg PO DAILY Multivit-Min/Iron/Folic/Lutein [Centrum Silver Women Tablet] 1 tab PO DAILY Levofloxacin [Levaquin] 250 mg PO DAILY Dexamethasone 6 mg PO DAILY Albuterol Sulfate [Ventolin HFA] 1 - 2 puff INHALATION RT-Q4H PRN PRN Reason: Shortness Of Breath Losartan/Hydrochlorothiazide [Losartan-Hctz 50-12.5 mg Tab] 1 tab PO DAILY Discharge Medication List Acetaminophen [Tylenol] 1,000 mg PO Q4-6H PRN 10/13/17 [History] Aspirin [Children's Aspirin] 81 mg PO DAILY 10/13/17 [History] Calcium Carbonate/Vitamin D3 [Calcium 600-Vit D3 10 mcg (400 Iu)] 1 tab PO DAILY 10/13/17 [History] Cyanocobalamin [Vitamin B-12] 500 mcg PO DAILY 10/13/17 [History] Folic Acid 1.6 mg PO DAILY 10/13/17 [History] Levothyroxine Sodium [Synthroid] 25 mcg PO DAILY 10/13/17 [History] Multivit-Min/Iron/Folic/Lutein [Centrum Silver Women Tablet] 1 tab PO DAILY 10/13/17 [History] Albuterol Sulfate [Ventolin HFA] 1 - 2 puff INHALATION RT-Q4H PRN 10/16/20 [History] Dexamethasone 6 mg PO DAILY 10/16/20 [History] Levofloxacin [Levaquin] 250 mg PO DAILY 10/16/20 [History] Losartan/Hydrochlorothiazide [Losartan-Hctz 50-12.5 mg Tab] 1 tab PO DAILY 10/16/20 [History] Follow up Appointment(s)/Referral(s): Fransisca Perera MD [Primary Care Provider] - 1-2 days
[2020-10-19] MEDS ORDERED: LOSARTAN-HCTZ 50-12.5 MG 1 EACH TAB PO SCH (12:00)
== END 2020-10-19 14:27 | disposition home or self-care (01) | DRG 683 ==
LOC: EC 15:51 → 4SSUR 18:29
PROVIDERS: ADMIT Internal Medicine; ATTEND Internal Medicine
DX: N17.0 Acute kidney failure with tubular necrosis (principal); E87.1 Hypo-osmolality and hyponatremia; M19.90 Unspecified osteoarthritis, unspecified site; E86.0 Dehydration; E78.5 Hyperlipidemia, unspecified; E03.9 Hypothyroidism, unspecified; D72.829 Elevated white blood cell count, unspecified; E86.1 Hypovolemia; Z96.1 Presence of intraocular lens; R41.3 Other amnesia; N28.1 Cyst of kidney, acquired; I11.9 Hypertensive heart disease without heart failure; Z82.5 Family history of asthma and other chronic lower respiratory diseases; Z82.49 Family history of ischemic heart disease and other diseases of the circulatory system; Z80.1 Family history of malignant neoplasm of trachea, bronchus and lung; Z79.890 Hormone replacement therapy; Z79.82 Long term (current) use of aspirin; Z90.49 Acquired absence of other specified parts of digestive tract; Z98.891 History of uterine scar from previous surgery; Z98.42 Cataract extraction status, left eye; Z98.41 Cataract extraction status, right eye; Z82.3 Family history of stroke
CPT/HCPCS: 36415; 74022; 74176; 80048; 80053; 81001; 82150; 83615; 83690; 83735; 84443; 85025; 85610; 85730; 87040; 87324; 93005; 96361; 96365; 96375; 99285

== ENCOUNTER → 2020-11-04 | Outpatient (CLI) | payer MEDICARE ==
--- NOTE | 2020-11-05 08:33 | XR ---
EXAMINATION TYPE: XR chest 2V DATE OF EXAM: 11/04/2020 COMPARISON: Chest x-ray 10/15/2020 HISTORY: R05 TECHNIQUE: Frontal and lateral views of the chest are obtained. FINDINGS: Linear increased attenuation in the left lower lung is again noted and is stable. No evide nt pneumothorax or pleural effusion. Cardiac mediastinal silhouette is stable. Aorta is dense. Bones are unchanged, there is thoracic spondylosis. Prominent lung volumes with flattening the hemidiaphrag ms could be consistent with underlying COPD. IMPRESSION: Some probable scarring present at the left lung base.
== END | disposition home or self-care (01) ==
LOC: RADXRMAIN 15:59
PROVIDERS: ATTEND Internal Medicine
DX: R05 Cough (principal)
CPT/HCPCS: 71046

== ENCOUNTER → 2020-11-21 | Outpatient (CLI) | payer MEDICARE ==
--- NOTE | 2020-11-22 07:09 | CT ---
EXAMINATION TYPE: CT chest w con DATE OF EXAM: 11/21/2020 COMPARISON: 117 HISTORY: cough CT DLP: 236.3 mGycm Automated exposure control for dose reduction was used. CONTRAST: CT scan of the chest is performed with IV Contrast, patient injected with 80cc mL of Isovue 300. FINDINGS: LUNGS: The lungs are grossly clear, there is no concerning parenchymal mass or nodule identified. Shi ear basilar atelectasis or parenchymal scarring. There is no pleural effusion or pneumothorax seen. The tracheobronchial tree is patent. MEDIASTINUM: There are no greater than 1 cm hilar or mediastinal lymph nodes. No pericardial effusi on is seen. Thoracic aorta is of normal caliber. The heart is not enlarged. UPPER ABDOMEN: No significant abnormality appreciated. OTHER: No additional significant abnormality is seen. IMPRESSION: Linear basilar atelectasis or parenchymal scarring. No evidence for infiltrate or mass.
== END | disposition home or self-care (01) ==
LOC: RADCTMAIN 17:48
PROVIDERS: ATTEND Internal Medicine
DX: J98.11 Atelectasis (principal)
CPT/HCPCS: 71260; Q9967

== ENCOUNTER → 2021-02-20 | Outpatient (CLI) | payer MEDICARE ==
--- NOTE | 2021-02-20 14:56 | XR ---
Lumbar spine HISTORY: Spondylosis 3 views of lumbar spine There is a dextroscoliosis centered at L2. Is multilevel spondylosis. Lumbar vertebral bodies show pr eserved height and bone mineralization. Anterolisthesis grade 1 at L4-5. Sclerosis is present posteri or elements of lumbar spine. There is multilevel spondylosis. Atherosclerotic vascular calcifications are present in the aortoiliac distribution. Surgical clips present right upper quadrant. IMPRESSION: Degenerative disc disease, facet arthropathy, scoliosis.
== END | disposition home or self-care (01) ==
LOC: RADXRMAIN 14:02
PROVIDERS: ATTEND Internal Medicine
DX: M47.816 Spondylosis without myelopathy or radiculopathy, lumbar region (principal); M51.36 Other intervertebral disc degeneration, lumbar region; M41.86 Other forms of scoliosis, lumbar region
CPT/HCPCS: 72100

== ENCOUNTER → 2021-05-28 | Outpatient (CLI) | payer MEDICARE ==
--- NOTE | 2021-05-28 09:36 | XR ---
Left hip HISTORY: Spondylosis, pain 2 views the left hip Bone mineralization and alignment are maintained. No fracture or dislocation. Mild joint space loss s uspected. IMPRESSION: No acute abnormality. There may be some mild joint space loss and hip MRI may be of benef it
--- NOTE | 2021-05-28 09:37 | XR ---
Left knee HISTORY: Pain 2 views left knee There is marginal spurring, joint space loss in the medial compartment. No evident right effusion. Al ignment and bone mineralization are maintained. No fracture or dislocation. Some spurring present at the patellofemoral joint. IMPRESSION: Osteoarthritis.
== END | disposition home or self-care (01) ==
LOC: RADXRMAIN 08:10
PROVIDERS: ATTEND Internal Medicine
DX: M17.12 Unilateral primary osteoarthritis, left knee (principal); M47.16 Other spondylosis with myelopathy, lumbar region
CPT/HCPCS: 73502

== ENCOUNTER → 2021-10-31 | Outpatient (CLI) | payer MEDICARE | END | disposition home or self-care (01) | LOC: RADXRMAIN 09:35 | PROVIDERS: ATTEND Internal Medicine | DX: Z53.9 Procedure and treatment not carried out, unspecified reason (principal) ==

== ENCOUNTER → 2021-11-14 | Outpatient (CLI) | payer MEDICARE ==
--- NOTE | 2021-11-14 13:58 | US ---
EXAMINATION TYPE: US carotid duplex BILAT DATE OF EXAM: 11/14/2021 COMPARISON: NONE CLINICAL HISTORY: I65.23 I10. HTN EXAM MEASUREMENTS: RIGHT: Peak Systolic Velocity (PSV) cm/sec ----- Right CCA: 70.0 ----- Right ICA: 157 ----- Right ECA: 149 ICA/CCA ratio: 2.2 RIGHT: End Diastole cm/sec ----- Right CCA: 10.3 ----- Right ICA: 31.2 ----- Right ECA: 9.8 LEFT: Peak Systolic Velocity (PSV) cm/sec ----- Left CCA: 81.9 ----- Left ICA: 103 ----- Left ECA: 125 ICA/CCA ratio: 1.2 LEFT: End Diastole cm/sec ----- Left CCA: 16.9 ----- Left ICA: 14.3 ----- Left ECA: 0.0 VERTEBRALS (direction of flow): Right Vertebral: Antegrade Left Vertebral: Antegrade Rhythm: Normal Mild plaque bilateral bifurcations. Tortuous right ICA IMPRESSION: 1. Mild atheromatous plaquing. 2. There is some elevation of the right internal carotid artery velocity which may be related to the tortuosity. Differential would include some moderate narrowing between 50-69% based on the velocity m easurement. Criteria for Assigning % of Stenosis / Diameter reduction (Estimation based on the indirect measurements of the internal carotid artery velocities (ICA PSV). 1. Normal (no stenosis)=ICA PSV < 125 cm/s: ratio < 2.0: ICA EDV<40 cm/s. 2. Less than 50% stenosis=ICA PSV < 125 cm/s: ratio < 2.0: ICA EDV<40 cm/s. 3. 50 to 69% stenosis=ICA PSV of 125 to 230 cm/s: ration 2.0 ? 4.0: ICA EDV 40-100 cm/s. 4. Greater than 70% stenosis to near occlusion= ICA PSV > 230 cm/s: ratio > 4.0: ICA EDV > 100 cm/s. 5. Near occlusion= ICA PSV velocities may be low or undetectable: variable ratio and ICA EDV. 6. Total occlusion=unable to detect flow.
--- NOTE | 2021-11-14 18:03 | ECHOF ---
Referral Reason:I10 essential hypertention MEASUREMENTS -------- HEIGHT: 160.0 cm WEIGHT: 72.6 kg BP: 120/58 RVIDd: 2.8 cm (< 3.3) IVSd: 1.1 cm (0.6 - 1.1) LVIDd: 4.6 cm (3.9 - 5.3) LVPWd: 1.1 cm (0.6 - 1.1) IVSs: 1.6 cm LVIDs: 2.8 cm LVPWs: 1.3 cm LA Diam: 2.7 cm (2.7 - 3.8) LAESV Index (A-L): 17.81 ml/m Ao Diam: 2.8 cm (2.0 - 3.7) AV Cusp: 1.8 cm (1.5 - 2.6) MV EXCURSION: 15.792 mm (> 18.000) MV EF SLOPE: 80 mm/s (70 - 150) EPSS: 0.4 cm MV E Sharan: 0.83 m/s MV DecT: 256 ms MV A Sharan: 0.99 m/s MV E/A Ratio: 0.84 AR PHT: 613 ms RAP: 5.00 mmHg RVSP: 41.96 mmHg FINDINGS -------- Sinus rhythm. This was a technically good study. The left ventricular size is normal. There is borderline concentric left ventricular hypertrophy. Overall left ventricular systolic function is normal with, an EF between 55 - 60 %. The right ventricle is normal in size. Normal LA size by volume 22+/-6 ml/m2. The right atrium is normal in size. Interatrial and interventricular septum intact. There is mild aortic regurgitation. There is trace to mild mitral regurgitation. Mild tricuspid regurgitation present. There is mild pulmonary hypertension. The right ventricular systolic pressure, as measured by Doppler, is 41.96mmHg. The pulmonic valve is normal. The aortic root size is normal. Normal inferior vena cava with normal inspiratory collapse consistent with estimated right atrial pre ssure of 5 mmHg. There is no pericardial effusion. CONCLUSIONS -------- 1. The left ventricular size is normal. 2. There is borderline concentric left ventricular hypertrophy. 3. Overall left ventricular systolic function is normal with, an EF between 55 - 60 %. 4. There is mild aortic regurgitation. 5. There is trace to mild mitral regurgitation. 6. Mild tricuspid regurgitation present. 7. There is mild pulmonary hypertension. 8. The right ventricular systolic pressure, as measured by Doppler, is 41.96mmHg. 9. There is no pericardial effusion. TECHNOLOGY SALES CONSULTANT: Zandra Lucas RDCS
== END | disposition home or self-care (01) ==
LOC: RADUSWWP 12:50
PROVIDERS: ATTEND Internal Medicine
DX: Z12.31 Encounter for screening mammogram for malignant neoplasm of breast (principal); I10 Essential (primary) hypertension; I65.23 Occlusion and stenosis of bilateral carotid arteries
CPT/HCPCS: 93306; 93880

== ENCOUNTER → 2021-11-27 | Outpatient (CLI) | payer MEDICARE ==
--- NOTE | 2021-11-27 18:00 | BD ---
EXAMINATION TYPE: Axial Bone Density DATE OF EXAM: 11/27/2021 COMPARISON: 10.10.2015 CLINICAL HISTORY: 76 YR OLD FEMALE.....ICD-10 CODE: M85.80 DISORDER OF BD Height: 61 Weight: 165 FRAX RISK QUESTIONS: Glucocorticoids (More than 3mos): YES (Ex: prednisone, prednisolone, methylprednisolone, dexamethasone, and hydrocortisone). RISK FACTORS HISTORY OF: HX OF 6 VERTEBRAL FX IN MID AND LOWER BACK A TEEN Postmenopausal woman: YES AT 52 YRS OLD Hyperparathyroidism: NO Adrenal Insufficiency: NO MEDICATIONS: Prednisone or other steroids: ASTHMA, INHALERS AND MEDS, FOR ABOUT 10 YRS Thyroid Medications: YES SYNTHROID FOR ABOUT 10 YRS Additional Medications: BP MEDS, CHOLESTEROL MEDS WITHOUT STATIN, VIT D AND CALCIUM Additional History: ASTHMA, HYPERTENSION, THYROID, CHOLESTEROL, ARTHRITIS EXAM MEASUREMENTS: Bone mineral densitometry was performed using the [employer] System. NO SPINE SCANNED, HX OF FXs Bone mineral density about the R hip (g/cm2): 1.052 Bone mineral density about the L hip (g/cm2): 0.980 T Score values are as follows: -----R Neck: -0.2 -----L Neck: -0.4 -----R Total: 0.3 -----L Total: -0.2 Bone mineral density has: Decreased -1.8% since study of: 10.10.2015 FRAX%s: THERE IS A 12.5% CHANCE FOR A MAJOR OSTEOPOROTIC FX AND A 1.5% FOR HER HIPS.....PROBABILI TY FOR FX IN 10 YRS TIME Bone mineral density about the L Wrist (g/cm2): 0.515 T Score values are as follows: -----Dist. R+U: -0.9 -----Prox. R+U: -1.7 -----Radius total: -2.1 Bone mineral density FIRST BONE DENSITY ON HER FOREARM IMPRESSION: Osteopenia (T Score between -2.5 and -1). There is slightly increased risk of fracture and the patient may be considered for treatment. Re-Screen 2-5 years. NOTE: T-SCORE=SD OF THE YOUNG ADULT MEAN.
== END | disposition home or self-care (01) ==
LOC: RADBDWWP 08:19
PROVIDERS: ATTEND Internal Medicine
DX: M85.80 Other specified disorders of bone density and structure, unspecified site (principal)
CPT/HCPCS: 77080

== ENCOUNTER → 2021-12-04 | Outpatient (CLI) | payer MEDICARE ==
--- NOTE | 2021-12-05 14:24 | MM ---
Reason for exam: screening (asymptomatic). Last mammogram was performed 1 year and 4 months ago. History: Patient is postmenopausal. Took estrogen for 17 years. Took progesterone for 17 years. Physical Findings: A clinical breast exam by your physician is recommended on an annual basis and results should be correlated with mammographic findings. MG 3D Screening Mammo W/Cad Bilateral CC and MLO view(s) were taken. Prior study comparison: August 01, 2020, bilateral MG screening mammo w CAD. March 27, 2019, bilateral MG screening mammo w CAD. No significant changes when compared with prior studies. ASSESSMENT: Benign, BI-RAD 2 RECOMMENDATION: Routine screening mammogram of both breasts in 1 year.
== END | disposition home or self-care (01) ==
LOC: RADMAMWWP 08:34
PROVIDERS: ATTEND Internal Medicine
DX: Z12.31 Encounter for screening mammogram for malignant neoplasm of breast (principal); Z13.820 Encounter for screening for osteoporosis; I10 Essential (primary) hypertension; I65.23 Occlusion and stenosis of bilateral carotid arteries
CPT/HCPCS: 77063; 77067

== ENCOUNTER → 2021-12-11 | Outpatient (CLI) | payer MEDICARE ==
--- NOTE | 2021-12-11 14:16 | CT ---
EXAMINATION TYPE: CT angio neck DATE OF EXAM: 12/11/2021 HISTORY: bilateral carotid stenosis COMPARISON: Carotid Dopplex dated 11/14/2021 CT DLP: 268.60 mGycm. Automated Exposure Control for Dose Reduction was Utilized. TECHNIQUE: CTA scan of the neck is performed with IV Contrast, patient injected with 65ml mL of Isov ue 370, axial images are obtained, coronal and sagittal reformatted images are reviewed. MIP and 3D r econstructed images are created on an independent workstation and reviewed. FINDINGS: Carotid/Vascular Structures: The ascending aorta measures 3.5 cm. Scattered arterial sclerotic calcif ication and tortuosity of the visualized arteries. Dominant right vertebral artery with hypoplastic l eft vertebral artery. Apparent severe stenosis of the origin the left vertebral artery yet patent dis tally. Mild atherosclerotic calcification at the bifurcation of the left common carotid artery. Other boo normal caliber and enhancement of the major neck arteries without significant stenosis, occlusio n, dissection, aneurysm or other significant abnormality. Other: Slight hyperenhancement of the right palatine tonsil, of unknown clinical significance. Please correlate clinically. Scarring along the lateral aspect of the right upper lung zone. 3 mm nodule is seen in the right upper lobe (image #17, series 4), stable since November 2020 CT scan. Degenerative changes of the lower cervical and upper thoracic spine. IMPRESSION: No significant stenosis or occlusion of the major neck arteries. Incidental findings as described abo ve.
== END | disposition home or self-care (01) ==
LOC: RADCTMAIN 12:08
PROVIDERS: ATTEND Internal Medicine
DX: I65.23 Occlusion and stenosis of bilateral carotid arteries (principal)
CPT/HCPCS: 82565; 84520; 70498; 36415; Q9967

== ENCOUNTER → 2023-01-11 | Outpatient (CLI) | payer MEDICARE ==
--- NOTE | 2023-01-11 16:24 | US ---
EXAMINATION TYPE: US kidneys/renal and bladder DATE OF EXAM: 01/11/2023 COMPARISON: CT abdomen pelvis 10/17/2020 CLINICAL HISTORY: N18.31 CHRONIC KIDNEY DISEASE, STAGE 3A. CKD, no symptoms EXAM MEASUREMENTS: Right Kidney: 10.9 x 4.5 x 4.4 cm Left Kidney: 11.2 x 4.7 x 5.6 cm Right Kidney: hypoechoic area that may represent column of Ammon versus other etiology Left Kidney: 2 probable cystic structures seen, largest = 1.4 x 1.0 x 1.1cm Bladder: wnl No hydronephrosis or nephrolithiasis demonstrated. Cortical medullary differentiation is maintained. Prominent column of Ammon demonstrated within the right mid kidney. There are 2 small cysts demonstr ated within the left kidney. The urinary bladder is anechoic. IMPRESSION: 1. No hydronephrosis or nephrolithiasis. 2. Small left renal cysts.
== END | disposition home or self-care (01) ==
LOC: RADUSWWP 15:31
PROVIDERS: ATTEND Internal Medicine
DX: N18.31 Chronic kidney disease, stage 3a (principal); N28.1 Cyst of kidney, acquired
CPT/HCPCS: 76770

== ENCOUNTER → 2023-01-13 | Outpatient (CLI) | payer MEDICARE ==
--- NOTE | 2023-01-14 16:55 | MM ---
Reason for Exam: Screening (asymptomatic). Last mammogram was performed 1 year(s) and 1 month(s) ago. Patient History: Menarche at age 14. First Full-Term at age 23. Postmenopausal. Patient used Estrogen for 17 years. Patient used Progesterone for 17 years. Risk Values: Liliana 5 year model risk: 1.6%. NCI Lifetime model risk: 3.2%. Prior Study Comparison: 03/27/2019 Bilateral Screening Mammogram, [facility]. 08/01/2020 Bilateral Screening Mammogram, [facility]. 12/04/2021 Bilateral Screening Mammogram, [facility]. Tissue Density: There are scattered fibroglandular densities. Findings: Analyzed By CAD. There is symmetrical and stable. Benign vascular calcification is present. No suspicious groups of microcalcifications, spiculated or lobular masses, architectural distortion or other secondary signs of malignancy are mammographically apparent. Overall Assessment: Benign, BI-RAD 2 Management: Screening Mammogram of both breasts in 1 year. A negative mammogram report should not preclude additional follow up of suspicious palpable abnormalities. Patient should continue monthly self breast exam. A clinical breast exam by your physician is recommended on an annual basis and results should be correlated with mammographic findings. Electronically signed and approved by: Gigi Figueroa D.O. Radiologis
== END | disposition home or self-care (01) ==
LOC: RADMAMWWP 08:11
PROVIDERS: ATTEND Internal Medicine Cardiovascular Disease
DX: Z12.31 Encounter for screening mammogram for malignant neoplasm of breast (principal); Z78.0 Asymptomatic menopausal state
CPT/HCPCS: 77063; 77067

== ENCOUNTER 2023-07-07 08:42 | Day surgery (SDC) | payer MEDICARE ==
[~2023-07-07 08:42] MED LIST: LACTATED RINGERS 1,000 ML IV SCH
[2023-07-07 09:10] VITALS: TEMP 97.1
[2023-07-07 09:11] LABS: Glucose,Whole Blood 142 mg/dL (70-110)
[2023-07-07] MEDS ORDERED: GLYCOPYRROLATE 0.2 MG/ML 2 ML VIAL ONE (10:01)
[2023-07-07] MEDS ORDERED: PROPOFOL 10 MG/ML 20 ML VIAL IV ONE (10:01)
--- NOTE | 2023-07-07 10:21 | P.PCN ---
Date of Procedure: 07/07/23 Procedure(s) Performed: BRIEF HISTORY: Patient is a 78-year-old pleasant white female scheduled for an elective colonoscopy as a part of screening for colon cancer. PROCEDURE PERFORMED: Colonoscopy with biopsy. PREOPERATIVE DIAGNOSIS: Screening for colon cancer. IV sedation per Anesthesia. PROCEDURE: After informed consent was obtained, the patient, was brought into the endoscopy unit. IV sedation was administered by Anesthesia under continuous monitoring. Digital rectal examination was normal. Initially the Olympus CF-160 flexible video colonoscope was then inserted in the rectum, gradually advanced into the cecum without any difficulty. Careful examination was performed as the scope was gradually being withdrawn. Ileocecal valve and the appendiceal orifice were visualized and appeared normal. Prep was excellent. Mucosa of the cecum, ascending colon, transverse colon, descending colon, appeared normal. Scattered right-sided diverticulosis seen. In the sigmoid colon there was a 3 mm polyp that was removed by cold biopsy. sigmoid colon, and rectum appeared normal. Retroflexion was performed in the rectum and no lesions were seen. The patient tolerated the procedure well. IMPRESSION: Scattered right-sided diverticulosis 3 mm sigmoid colon Polyp status post cold biopsy RECOMMENDATIONS: Findings of this examination were discussed with the patient as well as a family. She was advised to follow with biopsy results. Recommend a high-fiber diet and fiber supplements..
[2023-07-07 10:33] VITALS: RESP 16
[2023-07-07 10:57] VITALS: BP 119/77; PULSE 70
== END 2023-07-07 11:05 | disposition home or self-care (01) ==
LOC: ORWHC2ENDO 08:42
PROVIDERS: ATTEND Internal Medicine Gastroenterology
DX: Z12.11 Encounter for screening for malignant neoplasm of colon (principal); K63.5 Polyp of colon; K57.30 Diverticulosis of large intestine without perforation or abscess without bleeding; I10 Essential (primary) hypertension; E78.5 Hyperlipidemia, unspecified; E11.9 Type 2 diabetes mellitus without complications; E07.9 Disorder of thyroid, unspecified; Z79.890 Hormone replacement therapy; Z79.84 Long term (current) use of oral hypoglycemic drugs; Z79.899 Other long term (current) drug therapy; Z90.49 Acquired absence of other specified parts of digestive tract
CPT/HCPCS: 88305; 45380; J2704

== ENCOUNTER → 2024-03-27 | Outpatient (CLI) | payer MEDICARE ==
--- NOTE | 2024-03-28 18:02 | MM ---
Reason for Exam: Screening (asymptomatic). Last mammogram was performed 1 year(s) and 2 month(s) ago. Patient History: Menarche at age 14. First Full-Term at age 23. Postmenopausal. Patient used Estrogen for 17 years. Patient used Progesterone for 17 years. Risk Values: Liliana 5 year model risk: 1.6%. NCI Lifetime model risk: 3.0%. Prior Study Comparison: 08/01/2020 Bilateral Screening Mammogram, [facility]. 12/04/2021 Bilateral Screening Mammogram, [facility]. 01/13/2023 Bilateral MG 3D screening mammo w/cad, [facility]. Tissue Density: There are scattered areas of fibroglandular density. Findings: Analyzed By CAD. There is no suspicious group of microcalcifications or new suspicious mass in either breast. Overall Assessment: Negative, BI-RAD 1 Management: Screening Mammogram of both breasts in 1 year. . Patient should continue monthly self-breast exams. A clinical breast exam by your physician is recommended on an annual basis. This exam should not preclude additional follow-up of suspicious palpable abnormalities. Note on Liliana scores and lifetime risk: 1. A Liliana score greater than 3% is considered moderate risk. If this is the case, consider specialist referral to assess eligibility for a risk reducing agent. 2. If overall lifetime risk for the development of breast cancer is 20% or higher, the patient may qualify for future screening with alternating mammogram and breast MRI. Electronically signed and approved by: Melissa Polo M.D. Radiologist
== END | disposition home or self-care (01) ==
LOC: RADMAMWWP 08:07
PROVIDERS: ATTEND Internal Medicine
DX: Z12.31 Encounter for screening mammogram for malignant neoplasm of breast (principal); Z78.0 Asymptomatic menopausal state
CPT/HCPCS: 77063; 77067

== ENCOUNTER → 2024-08-21 | Outpatient (CLI) | payer MEDICARE ==
--- NOTE | 2024-08-21 12:24 | BD ---
EXAMINATION TYPE: Axial Bone Density DATE OF EXAM: 08/21/2024 CLINICAL HISTORY: 79 years old Female. 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 pt had lumbar spine fx as a teenager Bone mineral density about the R hip (g/cm2): 1.026 Bone mineral density about the L hip (g/cm2): 0.974 T Score values are as follows: -----R Neck: -0.2 -----L Neck: -0.6 -----R Total: 0.1 -----L Total: -0.3 Z Score values are as follows: -----R Neck: 1.7 -----L Neck: 1.3 -----R Total: 1.9 -----L Total: 1.5 Bone mineral density has: Decreased -1.3% since study of: 11/27/2021 Bone mineral density about the L Wrist (g/cm2): 0.540 T Score values are as follows: -----Dist. R+U: -2.4 -----Prox. R+U: -1.9 -----Radius total: -2.2 Z Score values are as follows: -----Dist. R+U: 0.1 -----Prox. R+U: 0.6 -----Radius total: 0.3 Bone mineral density has: Decreased -2.9% since study of: 11/27/2021 FRAX%s: The graph provided illustrates a 9.5% chance for a major osteoporotic fx and a 1.4% chance fo r the hips probability for fx in 10 years time. IMPRESSION: Osteopenia (T Score between -2.5 and -1). There is slightly increased risk of fracture and the patient may be considered for treatment. Re-Screen 2-5 years. NOTE: T-SCORE=SD OF THE YOUNG ADULT MEAN. [facility], , 08/21/2024 12:21 PM
== END | disposition home or self-care (01) ==
LOC: RADBDWWP 10:44
PROVIDERS: ATTEND Internal Medicine
DX: Z13.820 Encounter for screening for osteoporosis (principal); M81.0 Age-related osteoporosis without current pathological fracture; M85.89 Other specified disorders of bone density and structure, multiple sites
CPT/HCPCS: 77080

== ENCOUNTER → 2025-04-27 | Outpatient (CLI) | payer MEDICARE ==
--- NOTE | 2025-04-27 21:01 | CA ---
Transthoracic Echo Report Name: Summer Armando Age: 80 Gender: F : 1945 Exam Date: 04/27/2025 11:59 Exam Location: [facility] Ht (in): 62 Wt (lb): 155 Ordering Physician: Fransisca Perera MD Attending/Referring Phys: Matrix Drier Tender Mamta Ruby RDCS Procedure CPT: Indications: I34.0 mitral valve regurgitation Cardiac Hx: Technical Quality: Fair Contrast 1: Total Dose (mL): Contrast 2: Total Dose (mL): MEASUREMENTS (Male / Female) Normal Values 2D ECHO LV Diastolic Diameter PLAX 4.5 cm 4.2 - 5.9 / 3.9 - 5.3 cm LV Systolic Diameter PLAX 2.5 cm IVS Diastolic Thickness 0.8 cm 0.6 - 1.0 / 0.6 - 0.9 cm LVPW Diastolic Thickness 0.9 cm 0.6 - 1.0 / 0.6 - 0.9 cm LV Relative Wall Thickness 0.4 RV Internal Dim ED PLAX 2.2 cm LA Systolic Diameter LX 3.3 cm 3.0 - 4.0 / 2.7 - 3.8 cm LV Diastolic Volume MOD 2C 58.0 cm??? LV Systolic Volume MOD 2C 16.6 cm??? LV Ejection Fraction MOD 2C 71.3 % LV Cardiac Index MOD 2C 1397.6 cm???/min???m??? LV Diastolic Length 2C 5.6 cm LV Systolic Length 2C 4.8 cm M-MODE Aortic Root Diameter MM 2.7 cm LA Systolic Diameter MM 3.5 cm LA Ao Ratio MM 1.3 AV Cusp Separation MM 1.9 cm DOPPLER AV Peak Velocity 128.1 cm/s AV Peak Gradient 6.6 mmHg AI Peak Velocity 364.2 cm/s AI Peak Gradient 53.0 mmHg AI Pressure Half Time 945.0 ms MV Area PHT 2.9 cm??? Mitral E Point Velocity 67.5 cm/s Mitral A Point Velocity 85.3 cm/s Mitral E to A Ratio 0.8 MV Deceleration Time 265.5 ms TR Peak Velocity 285.1 cm/s TR Peak Gradient 32.5 mmHg FINDINGS Left Ventricle Left ventricular ejection fraction is estimated at 55-60 %. Normal left ventricular systolic function with no obvious regional wall motion abnormalities. Left ventricular cavity size normal. Left ventricular wall thickness normal. Right Ventricle Right ventricular systolic pressure within normal limits. Right Atrium Mild right atrial dilatation. Left Atrium Mild left atrial dilatation. Mitral Valve Structurally normal mitral valve. Mild mitral regurgitation. No mitral stenosis. Aortic Valve Trileaflet aortic valve. No aortic stenosis. Mild aortic regurgitation. Diffuse thickening (sclerosis) of the aortic valve cusps without reduced excursion. Tricuspid Valve Structurally normal tricuspid valve. Mild tricuspid regurgitation. No tricuspid stenosis. Pulmonic Valve Structurally normal pulmonic valve. No pulmonic stenosis. Mild pulmonic regurgitation. Pericardium No pericardial or pleural effusion. Aorta Normal size aortic root and proximal ascending aorta. CONCLUSIONS LVEF 55% No obvious regional wall motion abnormality Mild biatrial dilatation Mild mitral regurgitation, mild tricuspid regurgitation Sclerotic aortic valve with mild aortic regurgitation Previewed by: Dr Hany Crain (Electronically Signed) Final Date: 27 April 2025 21:00
--- NOTE | 2025-04-29 14:56 | US ---
EXAMINATION TYPE: US carotid duplex BILAT DATE OF EXAM: 04/27/2025 COMPARISON: NONE CLINICAL INDICATION: Female, 80 years old with history of I65.23 CAROTID STENOSIS; dizziness and weak ness TECHNIQUE: Grayscale, color Doppler and spectral Doppler evaluation of the bilateral carotid systems and vertebral arteries. Indirect Doppler criteria was utilized. FINDINGS: EXAM MEASUREMENTS: RIGHT: Peak Systolic Velocity (PSV) cm/sec ----- Right CCA: 56.5 ----- Right ICA: 88.1 ----- Right ECA: 118 ICA/CCA ratio: 1.56 RIGHT: End Diastole cm/sec ----- Right CCA: 9.8 ----- Right ICA: 21.6 ----- Right ECA: 0.0 LEFT: Peak Systolic Velocity (PSV) cm/sec ----- Left CCA: 74.0 ----- Left ICA: 84.8 ----- Left ECA: 92.7 ICA/CCA ratio: 1.15 LEFT: End Diastole cm/sec ----- Left CCA: 11.8 ----- Left ICA: 9.8 ----- Left ECA: 12.5 VERTEBRALS (direction of flow): Right Vertebral: Antegrade Left Vertebral: Antegrade, appears diminished; possibly due to it being nondominant. Rhythm: Normal MOLDED GOODS OPERATOR NOTES: Mild plaque bilateral bifurcations. No evidence of increased velocities Color Doppler imaging shows patency with blood flow throughout the carotid artery. Spectral waveforms are within normal limits. IMPRESSION: No hemodynamically significant internal carotid artery stenosis on either side. Criteria for Assigning % of Stenosis / Diameter reduction (Estimation based on the indirect measurements of the internal carotid artery velocities (ICA PSV). 1. Normal (no stenosis)=ICA PSV < 180 cm/s: ratio < 2.0: ICA EDV<40 cm/s. 2. Less than 50% stenosis=ICA PSV < 180 cm/s: ratio < 2.0: ICA EDV<40 cm/s. 3. 50 to 69% stenosis=ICA PSV of 180 to 230 cm/s: ration 2.0 ? 4.0: ICA EDV 40-100 cm/s. PSV 125-180 cm/sec and ICA/CCA PSV Ratio ? 2.0 is also consistent with 50-69% stenosis 4. Greater than 70% stenosis to near occlusion= ICA PSV > 230 cm/s: ratio > 4.0: ICA EDV > 100 cm/s. 5. Near occlusion= ICA PSV velocities may be low or undetectable: variable ratio and ICA EDV. 6. Total occlusion=unable to detect flow. [facility], Workstation: [facility], 04/29/2025 2:54 PM
== END | disposition home or self-care (01) ==
LOC: RADUSWWP 10:57
PROVIDERS: ATTEND Internal Medicine
DX: I08.3 Combined rheumatic disorders of mitral, aortic and tricuspid valves (principal); I65.23 Occlusion and stenosis of bilateral carotid arteries
CPT/HCPCS: 93306; 93880